=== PATIENT | male | born 1955 | race Caucasian/White ===

== ENCOUNTER 2017-07-25 16:17 | Observation (INO) | payer OTHER ==
[~2017-07-25] VITALS: Ht 185.4 cm; Wt 113.0 kg
[~2017-07-25 16:17] MED LIST: ADCIRCA20 MG PO; CALCA500CH PO; DIVA500EC PO; ENOX40I INJ; FURO80 PO; Multiple Vitam1 EAC1 PO; OPSUMIT10 MG PO; PHENY100ER PO; PRIM250 PO; TYVASO1.74 MG/2.; WARF5 PO
[2017-07-25 16:59] LABS: BASOPHILS ABSOLUTE AUTO 0.02 K/mm3 (0.00-0.23); BASOPHILS PERCENT AUTO 0 % (0-2); EOSINOPHILS ABSOLUTE AUTO 0.08 K/mm3 (0.00-0.68); EOSINOPHILS PERCENT AUTO 1 % (0-6); Hematocrit 41.7 % (37.0-53.0); IMMATURE GRAN ABSOLUTE AUTO 0.02 K/mm3 (0.00-0.10); IMMATURE GRAN PERCENT AUTO 0 % (0-1); LYMPHOCYTES ABSOLUTE AUTO 1.62 K/mm3 (0.84-5.20); LYMPHOCYTES PERCENT AUTO 29 % (21-46); MONOCYTES ABSOLUTE AUTO 0.51 K/mm3 (0.16-1.47); MONOCYTES PERCENT AUTO 9 % (4-13); Mean Corpuscular HGB 30.8 pg (26.0-34.0); Mean Corpuscular HGB Conc 33.6 g/dL (31.5-36.5); Mean Corpuscular Volume 92 fL (80-100); Mean Platelet Volume 9.9 fL (9.1-12.4); NEUTROPHILS ABSOLUTE AUTO 3.35 K/mm3 (1.96-9.15); NEUTROPHILS PERCENT AUTO 60 % (41-73); Platelet Count 228 K/mm3 (150-400); RDW Coefficient Variation 12.6 % (11.7-14.2); RDW Standard Deviation 42.7 fL (35.1-46.3); Red Blood Cell Count 4.54 M/mm3 (4.30-5.90)
[2017-07-25 17:15] LABS: Alanine Aminotransfer (ALT/SGP 37 U/L (12-78); Albumin, Blood 3.7 g/dL (3.4-5.0); Albumin/Globulin Ratio 1.1 (0.8-1.8); Alk Phos 53 U/L (50-136); Anion Gap 8 mmol/L (6-16); Aspartate Aminotrans (AST/SGOT 44 U/L (12-37); Bilirubin, Total 0.4 mg/dL (0.1-1.0); Blood Urea Nitrogen 15 mg/dL (8-24); Bun/Creatinine Ratio 18.7 (12.0-20.0); CO2, Blood 24 mmol/L (21-32); Calcium, Blood 9.1 mg/dL (8.5-10.1); Chloride, Blood 110 mmol/L (98-108); Globulin, Blood 3.4 g/dL (2.2-4.0); Glomerular Filtration Rate >60 (60-); Glucose, Blood 55 mg/dL (70-99); Sodium, Blood 142 mmol/L (136-145); Total Protein, Blood 7.1 g/dL (6.4-8.2); Troponin I <0.015 ng/mL (0.000-0.040)
[2017-07-25] MEDS ORDERED: ELIQUIS5 MG (17:43)
[2017-07-25] MEDS ORDERED: SILD25T (17:50)
[2017-07-25] MEDS ORDERED: [UNRECOGNIZED DRUG - OTHER] (17:51)
[2017-07-25 18:03] LABS: International Normalized Ratio 1.07; Prothrombin Time Results 11.2 Sec (9.7-11.5)
[2017-07-25 20:47] LABS: Creatine Kinase MB 7.4 ng/mL (0.0-3.6); Creatine Kinase MB Index 3.7 (0.0-4.0)
[2017-07-26 05:27] LABS: BASOPHILS ABSOLUTE AUTO 0.02 K/mm3 (0.00-0.23); BASOPHILS PERCENT AUTO 1 % (0-2); EOSINOPHILS ABSOLUTE AUTO 0.13 K/mm3 (0.00-0.68); EOSINOPHILS PERCENT AUTO 3 % (0-6); Hematocrit 39.9 % (37.0-53.0); Hemoglobin 13.5 g/dL (13.5-17.5); IMMATURE GRAN ABSOLUTE AUTO 0.01 K/mm3 (0.00-0.10); IMMATURE GRAN PERCENT AUTO 0 % (0-1); LYMPHOCYTES ABSOLUTE AUTO 1.93 K/mm3 (0.84-5.20); LYMPHOCYTES PERCENT AUTO 45 % (21-46); MONOCYTES ABSOLUTE AUTO 0.46 K/mm3 (0.16-1.47); MONOCYTES PERCENT AUTO 11 % (4-13); Mean Corpuscular HGB 31.2 pg (26.0-34.0); Mean Corpuscular HGB Conc 33.8 g/dL (31.5-36.5); Mean Corpuscular Volume 92 fL (80-100); Mean Platelet Volume 9.5 fL (9.1-12.4); NEUTROPHILS ABSOLUTE AUTO 1.71 K/mm3 (1.96-9.15); NEUTROPHILS PERCENT AUTO 40 % (41-73); Platelet Count 186 K/mm3 (150-400); RDW Coefficient Variation 12.6 % (11.7-14.2); Red Blood Cell Count 4.33 M/mm3 (4.30-5.90); White Blood Cell Count 4.26 K/mm3 (4.00-11.30)
[2017-07-26 05:54] LABS: Anion Gap 6 mmol/L (6-16); Blood Urea Nitrogen 12 mg/dL (8-24); CO2, Blood 26 mmol/L (21-32); Calcium, Blood 8.5 mg/dL (8.5-10.1); Chloride, Blood 109 mmol/L (98-108); Cholesterol 158 mg/dL (50-200); Creatinine, Blood 0.67 mg/dL (0.60-1.20); Glomerular Filtration Rate >60 (60-); Glucose, Blood 92 mg/dL (70-99); Sodium, Blood 141 mmol/L (136-145); Triglycerides 59 mg/dL (30-160); Very Low Density Lipoprot Chol 11 mg/dL (6-32)
[2017-07-26 06:02] LABS: CHOL/HDL RATIO 2.9; CPK Creatine Kinase 141 U/L (39-308); Creatine Kinase MB 5.6 ng/mL (0.0-3.6); HDL Cholesterol 54 mg/dL (>39); LDL/HDL RATIO 1.7; Low Density Lipoprotein Chol 92 mg/dL (0-110); Troponin I 0.017 ng/mL (0.000-0.040)
== END 2017-07-26 13:07 | disposition home or self-care (01) ==
LOC: ER 16:17 → MEDS 16:18 → ENPENDDIS 07-26 12:16 → MEDS 07-26 13:07
PROVIDERS: Family Medicine; Physician Assistant
DX: R55 Syncope and collapse (principal); R94.31 Abnormal electrocardiogram [ECG] [EKG]; G40.909 Epilepsy, unspecified, not intractable, without status epilepticus; K21.9 Gastro-esophageal reflux disease without esophagitis; G47.33 Obstructive sleep apnea (adult) (pediatric); I27.21 Secondary pulmonary arterial hypertension; E66.9 Obesity, unspecified; Z79.01 Long term (current) use of anticoagulants; Z98.890 Other specified postprocedural states; Z99.89 Dependence on other enabling machines and devices; Z79.899 Other long term (current) drug therapy; Z23 Encounter for immunization
CPT/HCPCS: 36415; 71046; 80048; 80053; 80061; 82550; 82553; 82947; 83036; 83880; 84443; 84484; 85025; 85610; 85730; 93005; 93010; 93225; 93226; 93306; 94762; 99285; G0008; G0378; Q2038

== ENCOUNTER 2021-02-14 12:36 | Day surgery (SDC) | payer OTHER ==
[~2021-02-14] VITALS: Ht 182.9 cm; Wt 106.2 kg
[~2021-02-14 12:36] MED LIST changes: +Alph-E-Mixed400 UNIT; +ELIQUIS5 MG; +LETAIRIS PO; +SILD25T; +UPTRAVI PO; +VITAMIN D325 MC3 PO; +[UNRECOGNIZED DRUG - OTHER]
--- NOTE | 2021-02-14 14:55 | NUR ---
02/14/21 1453 Nancy Puentes PT. FROM ENDO ROOM 1 TO PT. ROOM #2. PT. ON RA WITH SATS AT 84%. O2 PLACED ON PT. AT 2L/NC WITH SATS FROM 86-93%. PT. ENC. TO TAKE DEEP BREATHS. DR. BROWN WANTED PT. ON 2L/NC WHILE WAKING UP MORE. WHEN PT. ENC. TO TAKE DEEP BREATHS WITH SAT UP TO 95% ON 2L/NC. PT. DRINKING WATER.
== END 2021-02-14 16:00 | disposition home or self-care (01) ==
LOC: ORSCSDS 12:36
PROVIDERS: Internal Medicine Gastroenterology
PROC: 0DJD8ZZ Inspection of Lower Intestinal Tract, Via Natural or Artificial Opening Endoscopic (ICD-10-PCS; principal; 2021-02-14 14:00)
DX: Z12.11 Encounter for screening for malignant neoplasm of colon (principal); Z86.010 Personal history of colon polyps; K64.8 Other hemorrhoids; G47.30 Sleep apnea, unspecified; K57.30 Diverticulosis of large intestine without perforation or abscess without bleeding; I10 Essential (primary) hypertension; G47.33 Obstructive sleep apnea (adult) (pediatric); E66.9 Obesity, unspecified; Z68.31 Body mass index [BMI] 31.0-31.9, adult; Z79.01 Long term (current) use of anticoagulants; Z79.899 Other long term (current) drug therapy
CPT/HCPCS: J2250; J2704; J3010; J7120

== ENCOUNTER 2022-12-11 13:20 | Inpatient (IN) | payer MEDICARE, OTHER ==
[~2022-12-11] VITALS: Ht 185.4 cm; Wt 103.9 kg
[~2022-12-11 13:20] MED LIST changes: -Alph-E-Mixed400 UNIT; +Alph-E-Mixed400 UNIT PO; -ELIQUIS5 MG; +ELIQUIS5 MG PO; -SILD25T; +SILD25T PO
[2022-12-11 14:13] LABS: BASOPHILS ABSOLUTE AUTO 0.03 K/mm3 (0.00-0.23); BASOPHILS PERCENT AUTO 0 % (0-2); EOSINOPHILS ABSOLUTE AUTO 0.01 K/mm3 (0.00-0.68); EOSINOPHILS PERCENT AUTO 0 % (0-6); Hematocrit 49.3 % (37.0-53.0); Hemoglobin 16.7 g/dL (13.5-17.5); IMMATURE GRAN ABSOLUTE AUTO 0.04 K/mm3 (0.00-0.10); IMMATURE GRAN PERCENT AUTO 1 % (0-1); LYMPHOCYTES PERCENT AUTO 30 % (21-46); MONOCYTES ABSOLUTE AUTO 0.86 K/mm3 (0.16-1.47); MONOCYTES PERCENT AUTO 13 % (4-13); Mean Corpuscular HGB 33.3 pg (26.0-34.0); Mean Corpuscular HGB Conc 33.9 g/dL (31.5-36.5); Mean Corpuscular Volume 98 fL (80-100); Mean Platelet Volume 10.7 fL (9.1-12.4); NEUTROPHILS ABSOLUTE AUTO 3.82 K/mm3 (1.96-9.15); NEUTROPHILS PERCENT AUTO 57 % (41-73); NRBC ABSOLUTE 0.07 K/mm3 (0.00-0.02); Platelet Count 223 K/mm3 (150-400); RDW Coefficient Variation 15.8 % (11.7-14.2); RDW Standard Deviation 55.9 fL (35.1-46.3); Red Blood Cell Count 5.01 M/mm3 (4.30-5.90); White Blood Cell Count 6.76 K/mm3 (4.00-11.30)
[2022-12-11 14:19] LABS: International Normalized Ratio 1.31; Prothrombin Time Results 13.5 Sec (9.7-11.5)
[2022-12-11 14:34] LABS: Alanine Aminotransfer (ALT/SGP 22 U/L (12-78); Albumin, Blood 3.5 g/dL (3.4-5.0); Albumin/Globulin Ratio 0.9 (0.8-1.8); Alk Phos 195 U/L (50-136); Anion Gap 9 mmol/L (6-16); Aspartate Aminotrans (AST/SGOT 33 U/L (12-37); Bilirubin, Total 0.7 mg/dL (0.1-1.0); Blood Urea Nitrogen 65 mg/dL (8-24); Bun/Creatinine Ratio 29.4 (12.0-20.0); CO2, Blood 25 mmol/L (21-32); Calcium, Blood 9.2 mg/dL (8.5-10.1); Chloride, Blood 103 mmol/L (98-108); Creatinine, Blood 2.21 mg/dL (0.60-1.20); Ethanol (Alcohol), Blood, Med <3 mg/dL; Globulin, Blood 3.8 g/dL (2.2-4.0); Glomerular Filtration Rate 31 (60-); Glucose, Blood 122 mg/dL (70-99); Potassium, Blood 5.3 mmol/L (3.5-5.5); Sodium, Blood 137 mmol/L (136-145); Total Protein, Blood 7.3 g/dL (6.4-8.2)
[2022-12-11] MEDS ORDERED: POTA10T PO (18:28)
[2022-12-11 19:55] VITALS: BP 117/73
[2022-12-11] MEDS ORDERED: TADA10TA PO (20:12)
[2022-12-11 21:59] LABS: Albumin, Blood 3.2 g/dL (3.4-5.0); Anion Gap 7 mmol/L (6-16); Blood Urea Nitrogen 69 mg/dL (8-24); CO2, Blood 22 mmol/L (21-32); Calcium, Blood 9.1 mg/dL (8.5-10.1); Chloride, Blood 105 mmol/L (98-108); Creatinine, Blood 2.03 mg/dL (0.60-1.20); Glomerular Filtration Rate 35 (60-); Glucose, Blood 147 mg/dL (70-99); Phosphorus, Blood 4.6 mg/dL (2.5-4.9); Potassium, Blood 5.8 mmol/L (3.5-5.5); Sodium, Blood 134 mmol/L (136-145)
[2022-12-12 05:20] VITALS: BP 97/75
--- NOTE | 2022-12-12 05:44 | NUR ---
SUMMARY: PT ADMITTED OVERNIGHT. ON 5L VIA NC. PATIENT BASELINE IS 3L. PATIENT HAS HOME BIPAP HE WORE OVERNIGHT. PATIENT VERY UNSTEADY WHEN UP AMBULATING. NEEDS 2X ASSIST. PATIENT VERBALIZED HE HADN'T URINATED ALL DAY PRIOR TO ADMIT, BLADDER SCAN SHOWED 496ML. PATIENT WAS UNABLE TO VOID AFTER A FEW ATTEMPTS WHILE STANDING. ALMANZAR CATH ORDERS RECIEVED AND CATH PLACED. URINE VERY ANISHA IN COLOR. HOME MED REC COMPLETED WITH PATIENT . HOME MEDS BROUGHT IN WERE IN BOTTLE. WILL CALL THIS MORNING TO SEE IF THEY HAVE NON MEDS AT HOME SHE CAN BRING IN.
[2022-12-12 05:45] LABS: Hematocrit 49.1 % (37.0-53.0); Hemoglobin 16.2 g/dL (13.5-17.5); Mean Corpuscular HGB 32.7 pg (26.0-34.0); Mean Corpuscular Volume 99 fL (80-100); Mean Platelet Volume 11.1 fL (9.1-12.4); NRBC ABSOLUTE 0.08 K/mm3 (0.00-0.02); NRBC Auto 1.3 /100 WBC (0.0-0.2); Platelet Count 189 K/mm3 (150-400); RDW Coefficient Variation 15.5 % (11.7-14.2); RDW Standard Deviation 55.3 fL (35.1-46.3); Red Blood Cell Count 4.96 M/mm3 (4.30-5.90); White Blood Cell Count 5.96 K/mm3 (4.00-11.30)
[2022-12-12 06:05] LABS: Bun/Creatinine Ratio 38.7 (12.0-20.0); Calcium, Blood 8.9 mg/dL (8.5-10.1); Creatinine, Blood 1.86 mg/dL (0.60-1.20); Magnesium, Blood 2.8 mg/dL (1.6-2.4); Potassium, Blood 5.5 mmol/L (3.5-5.5)
[2022-12-12 07:24] VITALS: BP 103/84
[2022-12-12 12:40] LABS: Source, Urine Foley catheter
[2022-12-12 13:09] LABS: Appearance, Urine Cloudy (Clear); Bilirubin, Urine Neg (Neg); Blood, Urine 5+ (Neg); Color, Urine Amber (P-Yellow); Glucose Qualitative, Urine Neg (Neg); Ketones, Urine Neg (Neg); Leukocyte Esterase, Urine 3+ (Neg); Nitrite, Urine Neg (Neg); Protein, Urine 3+ (Neg); Urobilinogen, Urine NORM (Normal)
[2022-12-12 13:36] LABS: Amorphous Light (0-Heavy); Bacteria Rare /hpf; Mucus Light (0-Heavy); Red Blood Cells, Urine TNTC /hpf (0-2); Squamous Epithelial Cells Not Seen /hpf (Few)
[2022-12-12 15:52] VITALS: BP 101/80
--- NOTE | 2022-12-12 17:41 | NUR ---
SHIFT SUMMARY: NO ACUTE EVENTS. C/O BACK PAIN FROM BEING IN BED, BUT DECLINED OFFERED TYLENOL. NO EVENTS ON TELEMETRY, SR 70'S WITH BBB. ON O2 @ 5 L/MIN HF NC CONTINUOUS WITH O2 SATS 85-95% DEPENDING ON ACTIVITY. HAS OWN BIPAP AT BEDSIDE. ALMANZAR IN PLACE; URINE THIS MORNING WAS DARK ANISHA, BECAME MORE CLEAR AND YELLOW THIS AFTERNOON. TOLERATING REGULAR DIET. WORKED WITH PT/OT TODAY, WAS ABLE TO TRANSFER FROM BED TO [facility] FOR MRI WITH JUST SBA, BALANCE SLIGHTLY IMPAIRED. AT BEDSIDE MOST OF THE DAY.
[2022-12-12 19:15] VITALS: BP 105/72
[2022-12-13 04:52] VITALS: BP 116/83
--- NOTE | 2022-12-13 05:11 | NUR ---
SUMMARY: NO ACUTE EVENTS OVERNIGHT. PATIENT AOX4. VERY UNSTEADY ON HIS FEET. AMBULATED TO RESTROOM WITH STAFF 1X ASSIST GB AND WALKER. IF STAFF WAS NOT IN RESTROOM WITH HIM WHILE AMBULATING HE PROBABLY WOULD HAVE HAD A FALL LAST NIGHT DUE TO HIS BALANCE PROBLEMS. WORE HIS BIPAP THROUGHOUT THE NIGHT. CALLS APPROPRIATELY. BED ALARM ON FOR SAFETY.
[2022-12-13 05:37] LABS: Anion Gap 6 mmol/L (6-16); Blood Urea Nitrogen 60 mg/dL (8-24); Bun/Creatinine Ratio 48.8 (12.0-20.0); CO2, Blood 22 mmol/L (21-32); Calcium, Blood 8.6 mg/dL (8.5-10.1); Chloride, Blood 107 mmol/L (98-108); Creatinine, Blood 1.23 mg/dL (0.60-1.20); Dilantin (Phenytoin), Total 10.6 ug/mL (10.0-20.0); Glomerular Filtration Rate 64 (60-); Glucose, Blood 93 mg/dL (70-99); Potassium, Blood 5.1 mmol/L (3.5-5.5); Sodium, Blood 135 mmol/L (136-145); Valproic Acid 52.1 ug/mL (50.0-100.0)
[2022-12-13 07:27] VITALS: BP 107/77
[2022-12-13] MEDS ORDERED: TAMS.4ER PO (12:41)
[2022-12-13 16:20] VITALS: BP 105/79
--- NOTE | 2022-12-13 17:43 | NUR ---
Patient worked with therapy, weakness, unsteady gait. PT recommends SBAx1 with FWW & GB. Removed gil this am, patient had little UO today, retaining 440mL. This evening patient voided 250mL but still retaining 167mL. Will continue bladder training over night. Plan to DC home tomorrow.
--- NOTE | 2022-12-13 17:53 | NUR ---
ASSUMED CARE OF PT. REPORT RECIEVED FROM DYLON COOPER
[2022-12-13 19:53] VITALS: BP 107/79
[2022-12-14 02:45] VITALS: BP 106/81
--- NOTE | 2022-12-14 05:21 | NUR ---
SUMMARY: NO ACUTE EVENTS OVERNIGHT. PATIENT HAD A FEW VOIDS OVERNIGHT. BLADDER SCANNED POST VOID THIS MORNING AND PATIENT STILL HAD 206ML RESIDUAL. PATIENT AMBULATED WITH WALKER TO RESTROOM THROUGHOUT NIGHT. AOX4. ON 4L NC NOW.
[2022-12-14 07:20] VITALS: BP 116/92
--- NOTE | 2022-12-14 09:47 | NUR ---
Patient doing well over night, good urine output. MD at bedside, pt ready for discharge. Instructions to f/u with urologist. Removed IV, reviewed discharge education. Pt verbalzied understanding. Left medical floor at 0900.
== END 2022-12-14 09:13 | disposition home health service (06) | DRG 683 ==
LOC: ER 13:20 → MEDS 13:21 → ENPENDDIS 12-13 11:35 → MEDS 12-14 09:13
PROVIDERS: Emergency Medicine; Internal Medicine; Nurse Practitioner Acute Care; ADMIT Hospitalist
PROC: 5A09357 Assistance with Respiratory Ventilation, Less than 24 Consecutive Hours, Continuous Positive Airway Pressure (ICD-10-PCS; principal; 2022-12-12)
DX: N17.9 Acute kidney failure, unspecified (principal); J96.11 Chronic respiratory failure with hypoxia; Z66 Do not resuscitate; G40.909 Epilepsy, unspecified, not intractable, without status epilepticus; R27.0 Ataxia, unspecified; G47.33 Obstructive sleep apnea (adult) (pediatric); R33.9 Retention of urine, unspecified; M54.9 Dorsalgia, unspecified; I27.21 Secondary pulmonary arterial hypertension; E86.9 Volume depletion, unspecified; W19.XXXA Unspecified fall, initial encounter; Z86.711 Personal history of pulmonary embolism; Z86.718 Personal history of other venous thrombosis and embolism; Z79.899 Other long term (current) drug therapy; Z99.89 Dependence on other enabling machines and devices; Z79.01 Long term (current) use of anticoagulants
CPT/HCPCS: 36415; 51702; 70553; 71046; 76770; 80048; 80053; 80069; 80164; 80185; 81001; 82550; 82947; 83735; 83880; 84484; 85025; 85027; 85379; 85610; 93005; 93010; 94660; 94761; 94762; 97110; 97116; 97162; 97166; 97530; 97535; 99285-25; A9270; A9579; G0378; G0480; J7030; J7050

== ENCOUNTER 2023-01-31 10:56 | Inpatient (IN) | payer OTHER, MEDICARE ==
[~2023-01-31] VITALS: Ht 182.9 cm; Wt 101.5 kg
[~2023-01-31 10:56] MED LIST changes: +POTA10T PO; +TADA10TA PO; +TAMS.4ER PO
[2023-01-31 11:45] LABS: PCO2 Arterial 38.7 mmHg (35-45); PO2 Arterial 44.3 mmHg (80-100); pH Blood Arterial 7.47 (7.35-7.45)
[2023-01-31 12:10] LABS: BASOPHILS ABSOLUTE AUTO 0.02 K/mm3 (0.00-0.23); BASOPHILS PERCENT AUTO 0 % (0-2); EOSINOPHILS ABSOLUTE AUTO 0.03 K/mm3 (0.00-0.68); EOSINOPHILS PERCENT AUTO 1 % (0-6); Hematocrit 43.1 % (37.0-53.0); Hemoglobin 14.8 g/dL (13.5-17.5); IMMATURE GRAN ABSOLUTE AUTO 0.04 K/mm3 (0.00-0.10); IMMATURE GRAN PERCENT AUTO 1 % (0-1); LYMPHOCYTES ABSOLUTE AUTO 0.96 K/mm3 (0.84-5.20); LYMPHOCYTES PERCENT AUTO 18 % (21-46); MONOCYTES ABSOLUTE AUTO 0.84 K/mm3 (0.16-1.47); MONOCYTES PERCENT AUTO 16 % (4-13); Mean Corpuscular HGB 33.8 pg (26.0-34.0); Mean Corpuscular HGB Conc 34.3 g/dL (31.5-36.5); Mean Corpuscular Volume 98 fL (80-100); Mean Platelet Volume 10.3 fL (9.1-12.4); NEUTROPHILS ABSOLUTE AUTO 3.41 K/mm3 (1.96-9.15); NEUTROPHILS PERCENT AUTO 64 % (41-73); Platelet Count 216 K/mm3 (150-400); RDW Coefficient Variation 15.6 % (11.7-14.2); RDW Standard Deviation 55.1 fL (35.1-46.3); Red Blood Cell Count 4.38 M/mm3 (4.30-5.90)
[2023-01-31 12:22] LABS: Albumin, Blood 3.2 g/dL (3.4-5.0); Albumin/Globulin Ratio 0.9 (0.8-1.8); Bilirubin, Total 0.7 mg/dL (0.1-1.0); Bun/Creatinine Ratio 41.3 (12.0-20.0); Calcium, Blood 8.8 mg/dL (8.5-10.1); Creatinine, Blood 1.09 mg/dL (0.60-1.20); Globulin, Blood 3.7 g/dL (2.2-4.0); Potassium, Blood 3.6 mmol/L (3.5-5.5); Total Protein, Blood 6.9 g/dL (6.4-8.2)
[2023-01-31 12:26] LABS: Dilantin (Phenytoin), Total 12.1 ug/mL (10.0-20.0); Valproic Acid 59.3 ug/mL (50.0-100.0)
[2023-01-31 16:09] VITALS: BP 101/76
[2023-01-31] MEDS ORDERED: TORSE20 PO (16:28)
[2023-01-31] MEDS ORDERED: POTA10T PO (16:28)
[2023-01-31] MEDS ORDERED: OMEP20ER PO (16:30)
--- NOTE | 2023-01-31 16:40 | NUR ---
pt short of breath and fatigued. History of recent falls. states harder to get him in and out of their trailer. They are needing to go to [place]. Gave her information on resources. pt kps score is 50% may need hospice care soon.
--- NOTE | 2023-01-31 16:43 | NUR ---
Pt arrived to 342 via gurney from ED, in attendence, a/ox4, havasupai, pleasant and coopertive with care, follows commands well, denies pain, lungs are clear in upper villalobos, a bit dim in bases, resp even and mild laboring, currently on 10 liters 02 via n/c, no cough noted, hrr, 3-4+ edema noted to b/l le, cap refill <3 sec, vs stable, afebrile, piv site is clear and patent, btx4, abd flat soft nontender, voids without diff, currently has a condom cath in place, draining clear yellow urine, skin has ecchymotic areas from multiple falls at home, no open areas, tone, miguel, nancy, call light in reach, oriented to room layout and call system, call light in reach.
--- NOTE | 2023-01-31 18:26 | NUR ---
pt doing ok on 10 liters, in good humor, left for the night, no further changes this shift, call light in reach.
[2023-01-31 20:18] VITALS: BP 128/84
[2023-02-01 05:00] LABS: Base Excess Venous 6.2 mmol/L; Bicarbonate Venous 29.4 mmol/L (24.0-30.0); PCO2 Venous 42.3 mmHg (38-42); pH Blood Venous 7.46 (7.34-7.37)
[2023-02-01 05:18] VITALS: BP 104/68
[2023-02-01 05:32] LABS: BASOPHILS ABSOLUTE AUTO 0.03 K/mm3 (0.00-0.23); BASOPHILS PERCENT AUTO 1 % (0-2); EOSINOPHILS ABSOLUTE AUTO 0.05 K/mm3 (0.00-0.68); EOSINOPHILS PERCENT AUTO 1 % (0-6); Hematocrit 41.2 % (37.0-53.0); Hemoglobin 14.1 g/dL (13.5-17.5); IMMATURE GRAN ABSOLUTE AUTO 0.01 K/mm3 (0.00-0.10); IMMATURE GRAN PERCENT AUTO 0 % (0-1); LYMPHOCYTES ABSOLUTE AUTO 1.38 K/mm3 (0.84-5.20); LYMPHOCYTES PERCENT AUTO 33 % (21-46); MONOCYTES ABSOLUTE AUTO 0.63 K/mm3 (0.16-1.47); MONOCYTES PERCENT AUTO 15 % (4-13); Mean Corpuscular HGB 33.7 pg (26.0-34.0); Mean Corpuscular HGB Conc 34.2 g/dL (31.5-36.5); Mean Corpuscular Volume 98 fL (80-100); Mean Platelet Volume 10.5 fL (9.1-12.4); NEUTROPHILS ABSOLUTE AUTO 2.08 K/mm3 (1.96-9.15); NEUTROPHILS PERCENT AUTO 50 % (41-73); Platelet Count 205 K/mm3 (150-400); RDW Coefficient Variation 15.4 % (11.7-14.2); RDW Standard Deviation 55.2 fL (35.1-46.3); Red Blood Cell Count 4.19 M/mm3 (4.30-5.90); White Blood Cell Count 4.18 K/mm3 (4.00-11.30)
[2023-02-01 06:04] LABS: Albumin/Globulin Ratio 0.9 (0.8-1.8); Bilirubin, Total 0.6 mg/dL (0.1-1.0); Bun/Creatinine Ratio 40.2 (12.0-20.0); Calcium, Blood 8.5 mg/dL (8.5-10.1); Globulin, Blood 3.3 g/dL (2.2-4.0); Magnesium, Blood 2.2 mg/dL (1.6-2.4); Potassium, Blood 3.7 mmol/L (3.5-5.5); Total Protein, Blood 6.3 g/dL (6.4-8.2)
[2023-02-01 06:22] VITALS: BP 120/70
--- NOTE | 2023-02-01 06:40 | NUR ---
SHIFT SUMMARY PT STARTED SHIFT ON 7L, INCREASED BACK TO 10L NC DUE TO O2 SAT BELOW 87% PT PLACED ON BIPAP REMAINDER OF THE NIGHT. Q1H FIRE SAFETY CHECKS COMPLETED
[2023-02-01 08:14] VITALS: BP 115/83
[2023-02-01 16:14] VITALS: BP 106/77
--- NOTE | 2023-02-01 17:37 | NUR ---
pt visiting with some aggitation. he is speaking more clearly but slightly more ashen. Review with nursing, if he keeps going up on oxygen and sats keep dropping suggest he be placed on telemetry. Will continue to monitor. Friday will see what his if pulmonolgy will be contacted to assist with prognosis. kps score is 50%
--- NOTE | 2023-02-01 18:21 | NUR ---
SHIFT SUMMARY: PT A&O X4. PT PLEASANT AND COOPERATIVE WITH CARE. AT BEDSIDE THROUGHOUT SHIFT TO ASSIST WITH NEEDS. PT WALKED TO RESTROOM WITH ONE PERSON ASSIST TWICE THIS SHIFT. PT UNSTEADY ON FEET EVEN WITH WALKER. PT RECEIVING IV LASIX BID TOLERATING WELL. EMPTIED CONDOM CATH AT 1800 EMPTYING 1500ML OUT. PT INCREASED TO 12L DUE TO 02 LOW TO MID 80'S. PT SLEEPS WITH BIPAP. PT STATES TREMORS ARE BETTER THIS SHIFT. TELE IN PLACE. CALL LIGHT IN REACH. BED IN LOWEST POSITION. AT BEDSIDE. WILL CONTINUE TO MONITOR.
[2023-02-02 04:37] VITALS: BP 103/73
[2023-02-02 05:11] LABS: BASOPHILS ABSOLUTE AUTO 0.02 K/mm3 (0.00-0.23); BASOPHILS PERCENT AUTO 0 % (0-2); EOSINOPHILS ABSOLUTE AUTO 0.05 K/mm3 (0.00-0.68); EOSINOPHILS PERCENT AUTO 1 % (0-6); Hematocrit 45.4 % (37.0-53.0); Hemoglobin 15.3 g/dL (13.5-17.5); IMMATURE GRAN ABSOLUTE AUTO 0.02 K/mm3 (0.00-0.10); IMMATURE GRAN PERCENT AUTO 0 % (0-1); LYMPHOCYTES ABSOLUTE AUTO 1.54 K/mm3 (0.84-5.20); LYMPHOCYTES PERCENT AUTO 33 % (21-46); MONOCYTES ABSOLUTE AUTO 0.72 K/mm3 (0.16-1.47); MONOCYTES PERCENT AUTO 15 % (4-13); Mean Corpuscular HGB 33.5 pg (26.0-34.0); Mean Corpuscular HGB Conc 33.7 g/dL (31.5-36.5); Mean Corpuscular Volume 99 fL (80-100); Mean Platelet Volume 10.2 fL (9.1-12.4); NEUTROPHILS ABSOLUTE AUTO 2.37 K/mm3 (1.96-9.15); NEUTROPHILS PERCENT AUTO 50 % (41-73); Platelet Count 228 K/mm3 (150-400); RDW Coefficient Variation 15.1 % (11.7-14.2); RDW Standard Deviation 55.2 fL (35.1-46.3); Red Blood Cell Count 4.57 M/mm3 (4.30-5.90); White Blood Cell Count 4.72 K/mm3 (4.00-11.30)
[2023-02-02 05:35] LABS: Bun/Creatinine Ratio 30.2 (12.0-20.0); Calcium, Blood 8.7 mg/dL (8.5-10.1); Creatinine, Blood 1.06 mg/dL (0.60-1.20); Potassium, Blood 3.9 mmol/L (3.5-5.5)
--- NOTE | 2023-02-02 05:36 | NUR ---
ASSUMED CARE A/O X3 CHILKAT NO C/O PAIN NO DISTRESS, PT HAS BRUISING ON FACE FROM FALLS SO I HAVE BEEN VERY CLOSE STANDBY ASSIST. PT DIURESING WELL HAS CONDOM CATH ON [facility] WAS REPLACED MID SHIFT. HEARING AID PLACED IN BEDSIDE TABLE, CPAP ON PT. UNEVENTFUL NIGHT.
[2023-02-02 07:31] VITALS: BP 101/69
[2023-02-02 15:46] VITALS: BP 94/70
--- NOTE | 2023-02-02 17:48 | NUR ---
PT COMPUTER DOES NOT SCAN. ENTERING MEDICATIONS IN MAUALLY.
--- NOTE | 2023-02-02 18:39 | NUR ---
SHIFT SUMMARY: PT A&O X4. PT PLEASANT AND COOPERATIVE WITH ALL CARE. CONTINUING TO DIURESE PT. PT HAS LOST SEVERAL POUNDS SINCE ADMISSION. EMPTIED 850 FROM CONDOM CATH FOR DAY SHIFT. EDEMA LOOKING MUCH BETTER. PT ON 10L O2 NC AND BIPAP WITH NAPS/SLEEP. PT RANGING FROM MID 80'S TO LOW 90'S. CONDOM CATH IN PLACE. AT BEDSIDE ASSISTING PT WITH CARE NEEDS. FIRE IGNITION SOURCES DISCUSSED WITH PT AND BY THIS RN AND SHERIFFS OFFICER IN MORNING ROUNDS. PT VERBALIZED UNDERSTANDING. CALL LIGHT IN REACH. BED IN LOWEST POSITION. WILL CONTINUE TO MONITOR.
[2023-02-02 19:52] VITALS: BP 96/64
[2023-02-03] VITALS (7 sets, daily range): BP systolic 104–123; BP diastolic 73–85
[2023-02-03 05:59] LABS: Bun/Creatinine Ratio 28.6 (12.0-20.0); Calcium, Blood 8.7 mg/dL (8.5-10.1); Creatinine, Blood 0.91 mg/dL (0.60-1.20); Potassium, Blood 4.1 mmol/L (3.5-5.5)
--- NOTE | 2023-02-03 17:25 | NUR ---
PATIENT IS ALERT AND ORIENTED AND COOPERATIVE WITH CARE. ON 10L O2 BLEED IN THROUGH HIS BIPAP AT THIS TIME WITH OXYYGEN SATURATION OF 94%. PATIENT DOES DESATURATE AT TIMES, EVEN AT REST. HE STARTED THE SHIFT OF 8L O2 VIA NC AND NEEDED TO BE INCREASED TO 13L TO KEEP O2 SATS ABOVE 90%. THE PATIENT'S AND SISTER HAVE BEEN AT THE BEDSIDE MOST OF THE SHIFT. HE HAS BILATERAL LOWER EXTREMITY EDEMA, SWAPNIL HOSE WERE PLACED ON THE PT TODAY. PATIENT WORKED WITH PT. HE SAT UP IN THE CHAIR AND THEN RECLINER FOR A FEW HOURS TODAY. PLAN IS TO TITRATE O2 TO HIS BASELINE AMOUNT BEFORE DISCHARGE HOME WITH .
[2023-02-04 04:13] VITALS: BP 118/81
--- NOTE | 2023-02-04 06:14 | NUR ---
SHIFT SUMMERY PT RESTING IN BED, PT ON BIPAP WITH 8L BLED IN. PT SEEMED TO REST WELL. EARLYER PTS FAMILY HERE PT WANTING TO GET UP TO BR TO HAVE BM. PT NOT WANTING TO USE BSC. PT UP TO BR WITH 2 ASSIST WALKER AND GATE BELT. PT HAD LIQ BM FROM BED TO BR PT FINISED BM WAS CLEANED AND HELPED BACK TO BED. PT SEEMS TO HAVE SLEPT THIS NIGHT. CALL LIGHT IN REACH BED ALARM ON. FIRE TEACHING REVIEWED. PT ALERT AND ORIENTED BUT FORGETFULL AT TIMES.
[2023-02-04 06:23] LABS: Bun/Creatinine Ratio 31.6 (12.0-20.0); Calcium, Blood 8.7 mg/dL (8.5-10.1); Creatinine, Blood 0.89 mg/dL (0.60-1.20)
[2023-02-04 08:01] VITALS: BP 121/79
--- NOTE | 2023-02-04 10:20 | NUR ---
ASSUMED CARE AND COMFORT OF THIS PATIENT FROM KEYLA OSBORNE NOC SHIFT. PATIENT RESTING COMFORTABLY EYES CLOSED REMAINS ON CPAP. ABLE TO VERBALIZE ANSWERS TO FIRE SAFETY QUESTION. NO CONCERNS NOTED. EDUCATION PROVIDED.
[2023-02-04 15:20] VITALS: BP 107/73
--- NOTE | 2023-02-04 18:42 | NUR ---
ASSUMED CARE OF PT A/O, NO C/O PAIN, O2 WAS 88 ON 10L SO I SWITCHED PROB TO EAR AND IS NOW AT 93. STATED THEY PLACE IT ON HIS FOREHEAD AT MD OFFICE WITH MAINTAINS IT IN THE 90S. CONDOM CATH ALSO WAS REPLACED AND LEG STRAP APPLIED TO SECURE TUBING. REPORT TO BE GIVEN
[2023-02-04 20:23] VITALS: BP 119/79
[2023-02-05 04:57] VITALS: BP 115/78
--- NOTE | 2023-02-05 05:51 | NUR ---
WIND FARM ENGINEER SUMMARY NO ACUTE EVENTS OVERNIGHT. A&OX4. PATIENT EFFECTIVELY COMMUNICATES NEEDS. RR EVEN AND UNLABORED AT REST ON 10L/MIN 02. PATIENT IS ON CONTINUOUS BIOX AND IS NOTED TO DESATURATED QUICKLY WITH SUPPLEMENTAL O2 IS REMOVED. TELE REVEALS SINUS RHYTHM, HR 80'S. CONDOM CATHETER SECURED AND DRAINING TO GRAVITY. BED LOW AND LOCKED. CALL LIGHT WITHIN REACH. THIS RN WILL CONTINUE TO MONITOR.
[2023-02-05 07:56] VITALS: BP 121/82
[2023-02-05 15:20] VITALS: BP 121/76
--- NOTE | 2023-02-05 18:41 | NUR ---
SHIFT SUMMARY PATIENT UP TO CHAIR WITH THERAPY. PATIENT NEEDING 2 PERSON ASSIST WITH AMBULATION AND REPEATED QUEING. PATIENT CONFUSED AT TIMES BUT EASILY REORIENTED. PATIENT PULLING AT EAR BIOX AND MISPLACED HEARING AID. HEARING AD FOUND WHILE PRESENT IN THE ROOM. PATIENT CONTINUES ON HIGH FLOW O2. CONCERNED RELATED TO DISCHARGE PLAN. CASE MANAGEMENT SPOKE WITH RELATED TO PLAN FOR SNF/REHAB.
[2023-02-05 19:17] VITALS: BP 96/67
--- NOTE | 2023-02-06 02:34 | NUR ---
PT EDUCATED ON [facility] FIRE SAFETY IGNITION/EXPLOSIVE SOURCES NON SMOKING POLICY AND VERBALIZED UNDERSTANDING.
--- NOTE | 2023-02-06 03:38 | NUR ---
SHIFT SUMMARY NOC PT A/O X 4. PLEASANT AND COOPERATIVE WITH CARE. PT ON O2 10L/NC SPO2 >92%. PT ON TELE RUNNING SINUS RHYTHM @ 83 BPM. PT HAS 2+ EDEMA BLE AND IS BEING DIURESED BID WITH LASIX FOR FLUID OVERLOAD. PT ON BIPAP FOR SLEEPING. PT IS AWAITING SNF TRANSFER ONCE OXYGEN DEMAND DROPS TO 7-8L. PT HAS CONDOM CATH IN PLACE.PT IS CURRENTLY RESTING WITH BED IN LOWEST POSITION, AND CALL LIGHT WITHIN REACH.
[2023-02-06 03:58] VITALS: BP 106/74
[2023-02-06 04:51] LABS: Bun/Creatinine Ratio 30.8 (12.0-20.0); Creatinine, Blood 1.04 mg/dL (0.60-1.20); Potassium, Blood 4.2 mmol/L (3.5-5.5)
[2023-02-06 07:29] VITALS: BP 116/81
[2023-02-06 15:25] VITALS: BP 107/64
--- NOTE | 2023-02-06 17:34 | NUR ---
SHIFT SUMMARY PT UP IN CHAIR FOR LUNCH AND SUPPER. 1-2 PERSON ASSIST WITH FWW AND GAIT BELT TO STAND AND TRANSFER. DENIES SOB OR RESP DISTRESS BUT O2 AT 11L/M BY HIGH FLOW. SATS IN MID TO HIGH 90'S WHEN SITTING IN CHAIR BUT 90-93% WHILE LAYING DOWN IN BED. AWAKE MOST OF THE DAY WITH FAMILY VISITING ON AND OFF.
[2023-02-06 20:18] VITALS: BP 100/69
[2023-02-07 03:02] VITALS: BP 119/88
--- NOTE | 2023-02-07 04:51 | NUR ---
SHIFT SUMMARY PATIENT ALERT AND ORIENTED AT BEGINING OF SHIFT. INTERMITTANT CONFUSION AT NIGHT, TAKING OFF BiPAP AT TIMES, ATTEMPTING TO GET UP OUT OF BED WITHOUT STAFF ASSIST. ON BiPAP WITH SUPLIMENTAL O2 FOR MOST OF SHIFT. ON CONTINUOUS PULSE OX MONITORING, LOW TO MID 90s. QUICKLY DESATURATES TO MID 80s WHENEVER TAKING OFF BiPAP OR NC, QUICK RETURN TO BASELINE WITH ENCOURAGEMENT TO KEEP BiPAP AND OR NC ON. REQUIRES 1 TO 2 ASSIST FOR TRANSFERS. BED LOW, CALL LIGHT WITHIN REACH.
[2023-02-07 07:49] VITALS: BP 111/79
[2023-02-07 16:51] VITALS: BP 107/71
--- NOTE | 2023-02-07 18:05 | NUR ---
SHIFT SUMMARY- PT ALERT AND ORIENTED TO SELF, NOORVIK SPEECH A LITTLE GARBLED, HE HAS BEEN SLEEPY ALL DAY. AT THE START OF THE SHIFT THE PT WAS ON 11L VIA HIGH FLOW NC. WHILE SLEEPING EARLIER IN THE SHIFT THE BLEED IN ON THE BIPAP HAD TO BE INCREASED TO 15L BLEED IN FOR SATS TO MAINTAIN 88-92%. PT WAS ASSISTED UP INTO THE CHAIR FOR LUNCH AND PLACED BACK ON HIGH FLOW O2 AT 11L. PT WAS NOTED TO BE SATTING 99% ON 11L AT AROUND 1500 BEGAN TO TITRATE DOWN THE O2. SPOKE TO RT THEY ARE AWARE, THE PT IS CURRENTLY SITTING IN THE CHAIR, CALL LIGHT IN REACH, TELE IN PLACE ON 4L O2 VIA HIGH FLOW NC. NO CURRENT S&S OF DISTRESS NOTED SATS 92-96% AT REST IN THE CHAIR.
[2023-02-07 19:29] VITALS: BP 108/82
--- NOTE | 2023-02-07 23:17 | NUR ---
ENTERED PATIENTS ROOM TO CHECK CONTINUOUS PULSE OX. PATIENT SATS WERE READING 80 WITH CPAP ON. IMMEDIATELY RAISED HOB AND NOTIFIED RN. INCREASED O2 TO 10L PER RN REQUEST. SATS RETURNED TO 90.
[2023-02-08 04:37] VITALS: BP 101/71
[2023-02-08 06:42] LABS: Bun/Creatinine Ratio 50.8 (12.0-20.0); Calcium, Blood 8.7 mg/dL (8.5-10.1); Creatinine, Blood 0.77 mg/dL (0.60-1.20); Potassium, Blood 3.8 mmol/L (3.5-5.5)
--- NOTE | 2023-02-08 06:55 | NUR ---
SHIFT SUMMARY PATIENT MORE ALERT AND INTERACTIVE THIS SHIFT. KEPT BiPAP ON THROUGHOUT NIGHT WHILE ASLEEP. HAD 1 BRIEF EPISODE OF DESATURATION TO LOW 80s. TURNED O2 UP TO 10L FOR ABOUT A MINUTE WHILE ADJUSTING MASK. TURNED BACK DOWN TO 4L, MAINTAINING SPO2 THROUGHOUT REMAINDER OF SHIFT 90-95%. WITH MASK PROPERLY IN PLACE, PATIENT ABLE TO MAINTAIN O2 SATS WELL ON 4L. PATIENT'S SISTER AWARE, STATES HAS USED CHIN STRAP IN THE PAST AND DOES NOT WORK. PATIENT AND FAMILY REMINDED OF FIRE SAFETY AND RISK OF INJURY R/T OXYGEN USE, VERBALIZED UNDERSTANDING, DENIES HAVING ANY SOURCE OF IGNITION. NO ACUTE CHANGES NOTED OVERNIGHT. BED IN LOW POSITON, CALL LIGHT WITHIN REACH.
[2023-02-08 07:27] VITALS: BP 117/68
--- NOTE | 2023-02-08 17:04 | NUR ---
SHIFT SUMMARY PATIENT IS ALERT AND ORIENTED X3. PATIENT HAS HAD NO ACUTE EVENTS THIS SHIFT. VITAL SIGNS REVIEWED. PATIENT HAS HAD NO COMPLAINTS OF PAIN, NAUSEA, SOB OR VOMITTING THIS SHIFT. PATIENT HAS MAINTAINED O2 SATS ABOVE 94 ALL SHIFT. PATIENTS HAS ASSISTED WITH CARE. PATIENT HAS WORKED WELL WITH PHYSICAL THERAPY WITH NO DESATTING. BED IN LOCKED AND LOWEST POSITION. CALL LIGHT IN PLACE. WILL MONITOR UNTIL SHIFT CHANGE.
[2023-02-08 20:09] VITALS: BP 105/75
[2023-02-09 02:26] VITALS: BP 110/76
--- NOTE | 2023-02-09 04:03 | NUR ---
SHIFT SUMMARY PATIENT HAD NO ACUTE CHANGES. AXOX 3-4 AND ONE ASSIST TO BSC. USES URINAL AT BEDSIDE. PIV REMAINS INTACT. TELE MONITOR NSR @ 80. ON 4L O2 NC AND USES BIPAP WITH 6L O2 BLEED IN. DENIES CHEST PAIN, SOB, AND N/V. VSS/AFEBRILE. COOPERATIVE WITH CARE. CALL LIGHT IN REACH. BED IN LOWEST POSITION. WILL CONTINUE TO MONITOR UNTIL DAY SHIFT NURSE ASSUMES CARE.
[2023-02-09 05:26] LABS: Bun/Creatinine Ratio 41.6 (12.0-20.0); Creatinine, Blood 0.89 mg/dL (0.60-1.20); Potassium, Blood 3.5 mmol/L (3.5-5.5)
[2023-02-09 08:31] VITALS: BP 114/78
--- NOTE | 2023-02-09 17:02 | NUR ---
SHIFT SUMMARY PATIENT IS ALERT AND ORIENTED. PATIENT HAS HAD NO ACUTE EVENTS THIS SHIFT. VITAL SIGNS REVIEWED. PATIENT HAS HAD NO COMPLAINTS OF PAIN, NAUSEA, SOB OR VOMITTING THIS SHIFT. PATIENT REMAINS ON 4L NC. PATIENT IS PLANNING ON DISCHARGING TO SNF TOMORROW DEPENDING ON AVAILABILITY OF BED. PATIENTS HAS BEEN WITH PATIENT MOST OF SHIFT ASSISTING WITH CARE. BED IS LOCKED AND LOWEST POSITION. CALL LIGHT IN PLACE. WILL MONITOR UNTIL SHIFT CHANGE.
[2023-02-09 17:10] VITALS: BP 113/78
[2023-02-09 19:52] VITALS: BP 116/77
[2023-02-10 02:42] VITALS: BP 106/76
--- NOTE | 2023-02-10 04:20 | NUR ---
SHIFT SUMMARY PATIENT HAD NO ACUTE CHANGES. AXO X4 AND ONE ASSIST TO BSC. USES URINAL AT BEDSIDE. PIV REMAINS INTACT. ON 8L O2 NC AND USES BIPAP WITH 6L O2 BLEED IN. ON CONTINUOUS PULSE OXIMETRY STATING >92%. VSS/AFEBRILE. DENIES CHEST PAIN, SOB, AND N/V. CALL LIGHT IN REACH. BED IN LOWEST POSITION. WILL CONTINUE TO MONITOR UNTIL DAY SHIFT NURSE ASSUMES CARE.
[2023-02-10 07:30] VITALS: BP 123/79
[2023-02-10 16:47] VITALS: BP 108/78
--- NOTE | 2023-02-10 18:04 | NUR ---
NO NEW CONCERNS THIS SHIFT. PATIENT ON 6-7L O2 VIA NC WITH BIPAP AT NOC. 2+ EDEMA TO BLE. PATIENT WORKED WITH PT/OT TODAY AND WAS UP IN CHAIR FOR SEVERAL HOURS. DENIES ANY PAIN OR DISCOMFORT. A/OX4, PLEASANT AND COOPERATIVE WITH CARE. GOOD URINE OUTPUT TODAY, USING URINAL TO VOID. PATIENT CALLS APPROPRIATELY FOR ASSISTANCE. POSSIBLE SNF DISCHARGE WHEN STABLE.
[2023-02-10 19:58] VITALS: BP 94/69
[2023-02-11 02:27] VITALS: BP 128/87
--- NOTE | 2023-02-11 05:46 | NUR ---
SUMMARY: PT A/OX4 AND IS SAMISH BUT CALLS APPROPRIATELY TO SPECIFY NEEDS. HE'S PLEASANT AND COOPERATIVE W/CARE AND DENIED COMPLAINTS T/O NOCTE. HE USES URINAL AD KHOA IN BED AND IS 1PA W/FWW OOB. HE HAD PARTIAL BEDBATH TONIGHT D/T ACCIDENTALLY SPILLING URINE. HE CONT'S TO BECOME SOB W/EXERTION AND REMAINS ON 6-8L O2 VIA NC/CPAP BLEED IN TO MAINTAIN SPO2>88%, 4L O2 IS BASELINE. 2+ EDEMA OBSERVED TO BLE'S BUT PT IS DIURESING WELL W/FREQ UO. NO ACUTE CHANGES, VSS/ AFEBRILE. SNF PLACEMENT PENDING. FIRE SAFETY ASSESSMENT AND EDUCATION PROVIDED. WCTM AND REPORT TO DAY RN.
[2023-02-11 07:29] VITALS: BP 97/64
[2023-02-11 17:25] VITALS: BP 99/76
--- NOTE | 2023-02-11 18:17 | NUR ---
NO NEW CHANGES THIS SHIFT. PATIENT REMAINS ON 6-7L O2, UNABLE TO WEAN TODAY. LARGE AMOUNT OF U/O THIS SHIFT. 2+ EDEMA TO BLE. LUNGS CLEAR/DIM THROUGHOUT. VSS. PATIENT DENIES ANY PAIN. UP IN CHAIR FOR MEALS. TOLERATING LOW NA+ DIET. A/OX4, CALM AND COOPERATIVE WITH CARE, ABLE TO MAKE NEEDS KNOWN.
[2023-02-11 20:20] VITALS: BP 123/85
[2023-02-11 21:04] VITALS: BP 89/67
[2023-02-11 22:09] VITALS: BP 123/85
--- NOTE | 2023-02-11 22:10 | NUR ---
URINE OBSERVED TO BE CLOUDY AND HAZY W/SEDIMENT. TASHA NOTIFIED AND UA W/CULTURE IF INDICATED RX'D. URINE SAMPLE OBTAINED, AWAITING RESULT.
[2023-02-11 22:44] LABS: Source, Urine Voided
[2023-02-11 22:47] LABS: Bilirubin, Urine Neg (Neg); Blood, Urine 1+ (Neg); Glucose Qualitative, Urine Neg (Neg); Ketones, Urine Neg (Neg); Leukocyte Esterase, Urine 3+ (Neg); Nitrite, Urine Neg (Neg); Protein, Urine Neg (Neg); Specific Gravity, Urine 1.005 (1.003-1.022); Urobilinogen, Urine NORM (Normal)
[2023-02-11 22:54] LABS: Appearance, Urine Hazy (Clear); Color, Urine Yellow (P-Yellow)
[2023-02-11 23:00] LABS: White Blood Cells, Urine 50-100 /hpf (0-5)
[2023-02-11 23:01] LABS: Bacteria Mod /hpf; Squamous Epithelial Cells Rare /hpf (Few)
[2023-02-12 01:59] VITALS: BP 107/74
[2023-02-12 05:16] LABS: Albumin, Blood 3.1 g/dL (3.4-5.0); Anion Gap 3 mmol/L (6-16); Blood Urea Nitrogen 35 mg/dL (8-24); Bun/Creatinine Ratio 39.7 (12.0-20.0); CO2, Blood 36 mmol/L (21-32); Calcium, Blood 9.4 mg/dL (8.5-10.1); Chloride, Blood 93 mmol/L (98-108); Creatinine, Blood 0.88 mg/dL (0.60-1.20); Glomerular Filtration Rate 93 (60-); Glucose, Blood 96 mg/dL (70-99); Phosphorus, Blood 3.4 mg/dL (2.5-4.9); Potassium, Blood 3.3 mmol/L (3.5-5.5); Sodium, Blood 132 mmol/L (136-145)
--- NOTE | 2023-02-12 06:43 | NUR ---
SUMMARY: A/OX4, CALLS APPROPRIATELY TO SPECIFY NEEDS AND IS PLEASANT AND COOPERATIVE W/CARE. HE'S CONT'S TO HAVE AN UNSTEADY GAIT W/WEAKNESS AND REQUIRED 2PA W/FWW TO PIVOT T/F TO CHAIR THIS SHIFT. HE'S MOSTLY CONTINENT VIA URINAL AD KHOA BUT IS OCC INCONTINENT D/T URINARY FREQUENCY W/URGENCY R/T DIURESIS. URINE APPEARED VERY CLOUDY AND HAZY W/SEDIMENT OBSERVED TONIGHT. UA WAS OBTAINED W/CX NOW PENDING BUT POSSIBLE UTI IS OBSERVED SO COMMENCED PT ON ROCEPHIN. EDEMA PERSISTS TO BLE'S AND ACCURATE WT WAS OBTAINED THIS SHIFT, WT GAIN NOTED IN COMPARISON TO PT'S STATED ER ADMIT WT BUT STAFF QUESTION ACCURACY. HE CONT'S TO REQUIRE 6-7L O2 VIA NC AND CPAP BLEED-IN W/INABILITY TO TITRATE, 4L IS BASELINE. PT DOESN'T APPEAR PARTICULARLY SOB BUT STILL DESATS W/MOST ACTIVITY AND EXERTION. NO ACUTE CHANGES. HE INTITIALLY WAS HYPOTENSIVE W/SBP 89 AT HS BUT MAP WAS >65 AND SBP HAS IMPROVED TO 100'S-120'S SINCE. ALL OTHER VSS. WCTM AND REPORT TO DAY RN.
[2023-02-12 08:09] VITALS: BP 99/72
[2023-02-12 15:29] VITALS: BP 101/66
--- NOTE | 2023-02-12 18:42 | NUR ---
SHIFT SUMMARY PATIENT UP OOB MULTIPLE TIMES TODAY. PATIENT WORKING WITH PT AND OT. AMBULATION IMPROVED. PATIENT CONTINUES TO BE CONFUSED AT TIMES BUT EASILY REORIENTED. PATIENT COOPERATIVE WITH CARE. PATIENT INCONTINENT MULTIPLE TIMES THROUGHOUT THE DAY AND HAVING ISSUES SPILLING URINAL. PATIENT CONTINUES TO BE GETTING DIURETICS. VERBALIZING FRUSTRATION RELATED TO THE EVENING TIME DIURETICS ARE GIVEN AND STATES THAT PATIENT DOES NOT GET MUCH REST.
[2023-02-12 19:19] VITALS: BP 94/66
[2023-02-13 02:09] VITALS: BP 101/78
--- NOTE | 2023-02-13 05:04 | NUR ---
SHIFT SUMMARY PT IS A&O2, CONFUSION OVERNIGHT, 1 ASSIST TO BSC, PT HAD BM OVERNIGHT, 6L NC SATS LOW 90S', NO COMPLAINTS OF PAIN OR ACUTE OVERNIGHT EVENTS, CONTINUE POC
[2023-02-13 06:06] LABS: Bun/Creatinine Ratio 40.1 (12.0-20.0); Calcium, Blood 9.4 mg/dL (8.5-10.1); Creatinine, Blood 0.92 mg/dL (0.60-1.20); Potassium, Blood 3.7 mmol/L (3.5-5.5)
[2023-02-13 09:53] VITALS: BP 100/66
[2023-02-13 15:59] VITALS: BP 95/69
--- NOTE | 2023-02-13 18:40 | NUR ---
PT IN [facility] TODAY. HOPING TO GET OUT OF HOSPITAL TOMORROW. HE EXPECTING TO GO TO REHAB TO GET STRONGER. KRYSTAL IN TO SEE TODAY, WAS BROTHER. NO NEW CONCERN NOTED. BED IN [facility], CALL PARVEEN IN [facility], CALLS APPROP
[2023-02-14 03:29] VITALS: BP 113/74
[2023-02-14 06:23] LABS: Bun/Creatinine Ratio 35.4 (12.0-20.0); Calcium, Blood 9.3 mg/dL (8.5-10.1); Creatinine, Blood 0.99 mg/dL (0.60-1.20)
[2023-02-14 08:09] VITALS: BP 107/77
[2023-02-14 11:46] LABS: SARS-Cov-2 (COVID-19) PCR, MMC NEGATIVE (NEGATIVE)
[2023-02-14] MEDS ORDERED: METO5 PO (12:39)
--- NOTE | 2023-02-14 14:42 | NUR ---
REPORT CALLED TO SERGEY AT [facility]. PT DRESSED AND READY TO GO AT THIS TIME.
--- NOTE | 2023-02-14 15:41 | NUR ---
transport here for pt. iv [id number] by aide. no tele. tralsport wheeled to door at 1530
== END 2023-02-14 15:31 | DRG 291 ==
LOC: ER 10:56 → MEDS 13:32
PROVIDERS: Emergency Medicine; Family Medicine; Internal Medicine; Nurse Practitioner Acute Care; ADMIT Internal Medicine
PROC: 5A09357 Assistance with Respiratory Ventilation, Less than 24 Consecutive Hours, Continuous Positive Airway Pressure (ICD-10-PCS; principal; 2023-01-31)
DX: I11.0 Hypertensive heart disease with heart failure (principal); J96.21 Acute and chronic respiratory failure with hypoxia; E87.1 Hypo-osmolality and hyponatremia; I27.20 Pulmonary hypertension, unspecified; I50.813 Acute on chronic right heart failure; G47.33 Obstructive sleep apnea (adult) (pediatric); Z66 Do not resuscitate; Z51.5 Encounter for palliative care; R54 Age-related physical debility; Z20.822 Contact with and (suspected) exposure to COVID-19; E55.9 Vitamin D deficiency, unspecified; G40.909 Epilepsy, unspecified, not intractable, without status epilepticus; E87.6 Hypokalemia; Z86.711 Personal history of pulmonary embolism; Z86.718 Personal history of other venous thrombosis and embolism; Z79.01 Long term (current) use of anticoagulants; Z79.899 Other long term (current) drug therapy; Z98.890 Other specified postprocedural states
CPT/HCPCS: 36415; 36600; 71045; 80048; 80053; 80069; 80164; 80185; 81001; 82803; 83735; 83880; 85025; 87086; 93005; 93010; 93306; 94660; 94762; 96374; 97110; 97110-CQ; 97112; 97116; 97162; 97166; 97530; 97535; 99285-25; A9270; J0696; J1940; U0002

== ENCOUNTER 2023-03-09 06:09 | Emergency (ER) | payer OTHER ==
[~2023-03-09] VITALS: Ht 182.9 cm; Wt 91.6 kg
[~2023-03-09 06:09] MED LIST changes: +METO5 PO; +OMEP20ER PO; +TORSE20 PO
[2023-03-09 09:50] VITALS: BP 117/81
== END 2023-03-09 09:50 | disposition home or self-care (01) ==
LOC: ER 06:09
DX: S01.01XA Laceration without foreign body of scalp, initial encounter (principal); W18.30XA Fall on same level, unspecified, initial encounter; Z79.899 Other long term (current) drug therapy; Z79.01 Long term (current) use of anticoagulants
CPT/HCPCS: 12002; 70450; 99283-25

== ENCOUNTER → 2024-02-05 | Outpatient (CLI) | payer OTHER ==
[2024-02-05 17:00] LABS: BASOPHILS ABSOLUTE AUTO 0.03 K/mm3 (0.00-0.23); BASOPHILS PERCENT AUTO 1 % (0-2); EOSINOPHILS ABSOLUTE AUTO 0.08 K/mm3 (0.00-0.68); EOSINOPHILS PERCENT AUTO 1 % (0-6); Hematocrit 39.5 % (37.0-53.0); Hemoglobin 13.3 g/dL (13.5-17.5); IMMATURE GRAN ABSOLUTE AUTO 0.04 K/mm3 (0.00-0.10); IMMATURE GRAN PERCENT AUTO 1 % (0-1); LYMPHOCYTES ABSOLUTE AUTO 1.51 K/mm3 (0.84-5.20); LYMPHOCYTES PERCENT AUTO 26 % (21-46); MONOCYTES ABSOLUTE AUTO 0.51 K/mm3 (0.16-1.47); MONOCYTES PERCENT AUTO 9 % (4-13); Mean Corpuscular HGB 32.7 pg (26.0-34.0); Mean Corpuscular HGB Conc 33.7 g/dL (31.5-36.5); Mean Corpuscular Volume 97 fL (80-100); Mean Platelet Volume 8.9 fL (9.1-12.4); NEUTROPHILS PERCENT AUTO 62 % (41-73); Platelet Count 248 K/mm3 (150-400); RDW Coefficient Variation 14.5 % (11.7-14.2); RDW Standard Deviation 50.6 fL (35.1-46.3); Red Blood Cell Count 4.07 M/mm3 (4.30-5.90); White Blood Cell Count 5.77 K/mm3 (4.00-11.30)
== END | disposition home or self-care (01) ==
LOC: LAB 16:55 → LAB SHORT 16:55
PROVIDERS: Physician Assistant Surgical
DX: M79.89 Other specified soft tissue disorders (principal)
CPT/HCPCS: 84550; 85025

== ENCOUNTER 2024-04-08 14:35 | Observation (INO) | payer OTHER ==
[~2024-04-08] VITALS: Ht 185.4 cm; Wt 95.0 kg
[~2024-04-08 14:35] MED LIST changes: +AMBRISENTAN10 MG PO; +COLCHICINE0.6 MG PO; +COQ-10100 MG PO; +DOCUZEN 8.6-501 EACH PO; +FEBUXOSTAT40 MG PO; +Iron Chews15 MG PO; +PROBIOTIC1 EA14 PO; +TERB250 PO; +VITAMIN D31250 MC2 PO
[2024-04-08 15:09] LABS: BASOPHILS ABSOLUTE AUTO 0.02 K/mm3 (0.00-0.23); BASOPHILS PERCENT AUTO 0 % (0-2); EOSINOPHILS ABSOLUTE AUTO 0.01 K/mm3 (0.00-0.68); EOSINOPHILS PERCENT AUTO 0 % (0-6); Hemoglobin 13.5 g/dL (13.5-17.5); IMMATURE GRAN ABSOLUTE AUTO 0.03 K/mm3 (0.00-0.10); IMMATURE GRAN PERCENT AUTO 0 % (0-1); LYMPHOCYTES ABSOLUTE AUTO 0.94 K/mm3 (0.84-5.20); LYMPHOCYTES PERCENT AUTO 14 % (21-46); MONOCYTES ABSOLUTE AUTO 0.85 K/mm3 (0.16-1.47); MONOCYTES PERCENT AUTO 13 % (4-13); Mean Corpuscular HGB 32.7 pg (26.0-34.0); Mean Corpuscular HGB Conc 32.9 g/dL (31.5-36.5); Mean Corpuscular Volume 99 fL (80-100); Mean Platelet Volume 9.9 fL (9.1-12.4); NEUTROPHILS ABSOLUTE AUTO 4.88 K/mm3 (1.96-9.15); NEUTROPHILS PERCENT AUTO 73 % (41-73); Platelet Count 266 K/mm3 (150-400); RDW Coefficient Variation 15.5 % (11.7-14.2); RDW Standard Deviation 56.7 fL (35.1-46.3); Red Blood Cell Count 4.13 M/mm3 (4.30-5.90); White Blood Cell Count 6.73 K/mm3 (4.00-11.30)
[2024-04-08 15:31] LABS: Albumin, Blood 3.3 g/dL (3.4-5.0); Albumin/Globulin Ratio 0.9 (0.8-1.8); Bilirubin, Total 0.5 mg/dL (0.1-1.0); Bun/Creatinine Ratio 23.9 (12.0-20.0); Calcium, Blood 9.3 mg/dL (8.5-10.1); Creatinine, Blood 1.17 mg/dL (0.60-1.20); Free Thyroxine 0.69 ng/dL (0.70-1.60); Globulin, Blood 3.6 g/dL (2.2-4.0); Magnesium, Blood 2.3 mg/dL (1.6-2.4); Potassium, Blood 4.5 mmol/L (3.5-5.5); Thyroid Stimulating Hormone 3.4 uIU/mL (0.360-4.800); Total Protein, Blood 6.9 g/dL (6.4-8.2)
[2024-04-08 15:40] LABS: Base Excess Venous 2.8 mmol/L; Bicarbonate Venous 26.4 mmol/L (24.0-30.0); PCO2 Venous 41.9 mmHg (38-42); pH Blood Venous 7.42 (7.34-7.37)
[2024-04-08 16:00] LABS: Source, Urine Clean Catch
[2024-04-08 16:05] LABS: Appearance, Urine Hazy (Clear); Bilirubin, Urine Neg (Neg); Blood, Urine Neg (Neg); Color, Urine Yellow (P-Yellow); Glucose Qualitative, Urine Neg (Neg); Ketones, Urine Neg (Neg); Leukocyte Esterase, Urine Neg (Neg); Nitrite, Urine Neg (Neg); Protein, Urine Neg (Neg); Specific Gravity, Urine 1.015 (1.003-1.022); Urobilinogen, Urine NORM (Normal); pH, Urine 6.5 (5.0-8.0)
[2024-04-08 16:31] LABS: International Normalized Ratio 1.11; Prothrombin Time Results 11.8 Sec (9.7-11.5)
[2024-04-08 16:39] LABS: Bacteria Few /hpf; Hyaline Casts 0-2 /lpf (0-2); Red Blood Cells, Urine 0-2 /hpf (0-2); Squamous Epithelial Cells Rare /hpf (Few); White Blood Cells, Urine 0-2 /hpf (0-5)
[2024-04-08] MEDS ORDERED: Furosemide 10 MG/ML 4ML Vial IV ONE (16:55)
[2024-04-08] MEDS ORDERED: CefTRIAXone Sodium 1,000 MG in NS 100 ML IV ONE (18:10)
[2024-04-08] MEDS ORDERED: Azithromycin 500 MG in NS 250 ML IV ONE (18:10)
[2024-04-08] MEDS ORDERED: FLU VACC TS2024-25(6MOS UP)/PF 45 MCG/0.5 ML SYRINGE IM SCH (21:30)
[2024-04-08] MEDS ORDERED: Ondansetron HCl 2 MG / ML 2ML Vial IV PRN (21:30)
[2024-04-08] MEDS ORDERED: Acetaminophen 325 MG TABLET PO PRN (21:30)
[2024-04-08 22:10] LABS: Dilantin (Phenytoin), Total 16.2 ug/mL (10.0-20.0); Valproic Acid 42.6 ug/mL (50.0-100.0)
[2024-04-08] MEDS ORDERED: Misc. Tablet PO ONE (22:15)
[2024-04-08 23:08] LABS: Adenovirus Not Detected (NOT DETECT); Bordetella pertussis Not Detected (NOT DETECT); Chlamydophila pneumoniae Not Detected (NOT DETECT); Coronavirus 229E Not Detected (NOT DETECT); Coronavirus HKU1 Not Detected (NOT DETECT); Coronavirus NL63 Not Detected (NOT DETECT); Coronavirus OC43 Not Detected (NOT DETECT); Human Metapneumovirus Not Detected (NOT DETECT); Human Rhinovirus/Enterovirus Not Detected (NOT DETECT); Influenza A/2009-H1 Not Detected (NOT DETECT); Influenza A/H1 Not Detected (NOT DETECT); Influenza A/H3 Not Detected (NOT DETECT); Influenza B Not Detected (NOT DETECT); Mycoplasma pneumoniae Not Detected (NOT DETECT); Parainfluenza Virus 1 Not Detected (NOT DETECT); Parainfluenza Virus 2 Not Detected (NOT DETECT); Parainfluenza Virus 3 Not Detected (NOT DETECT); Parainfluenza Virus 4 Not Detected (NOT DETECT); Respiratory Syncytial Virus Not Detected (NOT DETECT); SARS-Cov-2 (COVID-19), BioFire Not Detected (NOT DETECT)
[2024-04-08 23:27] VITALS: BP 99/61
[2024-04-09] MEDS ORDERED: Misc. Tablet PO ONE (01:50)
[2024-04-09 03:11] VITALS: BP 99/68
[2024-04-09 03:36] LABS: BASOPHILS ABSOLUTE AUTO 0.02 K/mm3 (0.00-0.23); BASOPHILS PERCENT AUTO 0 % (0-2); EOSINOPHILS ABSOLUTE AUTO 0.03 K/mm3 (0.00-0.68); EOSINOPHILS PERCENT AUTO 1 % (0-6); Hematocrit 40.4 % (37.0-53.0); Hemoglobin 13.5 g/dL (13.5-17.5); IMMATURE GRAN ABSOLUTE AUTO 0.01 K/mm3 (0.00-0.10); IMMATURE GRAN PERCENT AUTO 0 % (0-1); LYMPHOCYTES ABSOLUTE AUTO 1.43 K/mm3 (0.84-5.20); LYMPHOCYTES PERCENT AUTO 26 % (21-46); MONOCYTES ABSOLUTE AUTO 0.77 K/mm3 (0.16-1.47); MONOCYTES PERCENT AUTO 14 % (4-13); Mean Corpuscular HGB 33.1 pg (26.0-34.0); Mean Corpuscular HGB Conc 33.4 g/dL (31.5-36.5); Mean Corpuscular Volume 99 fL (80-100); Mean Platelet Volume 9.6 fL (9.1-12.4); NEUTROPHILS ABSOLUTE AUTO 3.35 K/mm3 (1.96-9.15); NEUTROPHILS PERCENT AUTO 60 % (41-73); Platelet Count 231 K/mm3 (150-400); RDW Coefficient Variation 15.2 % (11.7-14.2); RDW Standard Deviation 55.1 fL (35.1-46.3); Red Blood Cell Count 4.08 M/mm3 (4.30-5.90); White Blood Cell Count 5.61 K/mm3 (4.00-11.30)
[2024-04-09 03:51] LABS: International Normalized Ratio 1.08; Prothrombin Time Results 11.5 Sec (9.7-11.5)
[2024-04-09 03:58] LABS: Bun/Creatinine Ratio 26.6 (12.0-20.0); Calcium, Blood 9.1 mg/dL (8.5-10.1); Creatinine, Blood 0.98 mg/dL (0.60-1.20); Magnesium, Blood 2.2 mg/dL (1.6-2.4); Potassium, Blood 3.7 mmol/L (3.5-5.5)
--- NOTE | 2024-04-09 05:55 | NUR ---
Shift Summary- Received patient shortly after midnight from ED. Patient arrived alert and oriented x4, able to perform med-rec with me and complete all parts of his assessment with him. Skin assessment performed, noted to have small abraisions, scraped on bilateral knees (pictures taken and documented in soft chart), also a small scratch/abrasion on his left hip, all from a fall at home. Typically he walks with a FWW at home, where he lives with his . Normally wears 8-9L of oxygen at baseline on the nasal cannula and uses his bipap at night with oxygen bled into it as well. States he has lost 30lbs in 10months without trying. Purwick applied, lasix given and patient resting comfortably. Patient currently on 9L of oxygen, spo2 above 92%, in sinus rythym. VSS throughout, though BP on the 'softer' side. Patient is not symptomatic of this. No other needs throughout the night.
[2024-04-09] MEDS ORDERED: Docusate Sodium/Senna 1 Tab PO PRN (06:40)
[2024-04-09 08:33] VITALS: BP 99/71
[2024-04-09] MEDS ORDERED: Apixaban 5 MG Tab PO SCH (09:00)
[2024-04-09] MEDS ORDERED: Tamsulosin HCl 0.4 MG Cap PO SCH (09:00)
[2024-04-09] MEDS ORDERED: Primidone 250 MG Tab PO SCH (09:00)
[2024-04-09] MEDS ORDERED: Divalproex Sodium 500 MG TABLET.DR PO SCH (09:00)
[2024-04-09] MEDS ORDERED: Misc. Tablet PO SCH (09:00)
[2024-04-09] MEDS ORDERED: Omeprazole 20 MG CapCR PO SCH (09:00)
[2024-04-09] MEDS ORDERED: Potassium Chloride 10 Meq Tablet SA PO SCH (09:00)
[2024-04-09] MEDS ORDERED: Furosemide 10 MG/ML 4ML Vial IV SCH ×2 (09:00)
[2024-04-09] MEDS ORDERED: tadalafiL 5 MG Tab PO SCH (09:00)
--- NOTE | 2024-04-09 09:49 | NUR ---
REPORT GIVEN TO MED FLOOR RN AT 934. CONTACTED AT 903 AND UPDATED THAT PT IS BEING TRANSFERED TO ROOM 336 ON MEDICAL FLOOR.
--- NOTE | 2024-04-09 10:17 | NUR ---
"Spiritual Care Viisit | Pt. Request Pt. is awake in bed when he welcmoes my visit. Pt. is pleasant. facilitated a life review. Pt. displayed evidence of increased trust as rapport is established. Prayed for Pt. pt. verbalized gratitude for the spiritual care visit."
--- NOTE | 2024-04-09 11:25 | NUR ---
PT STATES TAKES 10 MG LETAIRIS, ORDER SHOWS ONLY GIVE [address] JACOB. OKAYED GIVE 10 MG PER BOTTLE INSTRUCTIONS. DISC USSED WITH PHA. WILL CHANGE.
[2024-04-09 15:32] VITALS: BP 109/59
[2024-04-09] MEDS ORDERED: UPTRAVI 1000 MCG PO SCH (17:00)
--- NOTE | 2024-04-09 18:40 | NUR ---
SHIFT SUMMARY PT COOPERATIVE WITH PROCEDURES, FAMILY REPORTS PT HAS A DIFFICULT TIME LETTING STAFF KNOW WHEN HE NEEDS SOMETHING. THIS RN WENT INTO ROOM MULTIPLE TIMES ASKING IF PT WAS IN PAIN OR HE WAS COLD. PT SUSTAINING APPROX 90% O2 SAT WHILE ON 8/9 L O2 VIA HIGH FLOW NASAL CANNULA. PURE WICK DID NOT HOLD DUE TO PATIENT NOT BEING CLEAN SHAVEN IN DILIP AREA. BED IN LOWEST POSITION, CALL LIGHT WITHIN REACH.
[2024-04-09 19:30] VITALS: BP 101/58
[2024-04-10 03:46] VITALS: BP 115/74
--- NOTE | 2024-04-10 05:22 | NUR ---
SHIFT SUMMARY PATIENT IS ALERT AND ORIENTED TO ALL BUT CAN BE FORGETFUL. DNR STATUS. PATIENT IS ABLE TO MAKE NEEDS KNOWN. PLEASANT AND COOPERATIVE WITH CARE. PATIENT IS VERY HARD OF HEARING, BUT DOES HAVE HEARING AIDS ON THE BEDSIDE TABLE. PATIENT USES 9L OF CONTINUOUS O2 AT HOME, WELL A BIPAP. PATIENT WILL REMOVE BIPAP TO TAKE A DRINK AND THEN WILL FORGET THAT HE NEEDS TO PUT IT BACK ON. PATIENT IS ABLE TO USE THE URINAL WHILE REMAINING IN BED. PATIENT'S OXYGEN SATURATION HAS MAINTAINED IN THE 90S ALL NIGHT. THIS RN WILL RELAY ALL INFORMATION TO ONCOMING NURSE. NO ACUTE CHANGES THIS SHIFT.
[2024-04-10 05:56] LABS: Hematocrit 40.1 % (37.0-53.0); Hemoglobin 13.5 g/dL (13.5-17.5); Mean Corpuscular HGB 33.3 pg (26.0-34.0); Mean Corpuscular HGB Conc 33.7 g/dL (31.5-36.5); Mean Corpuscular Volume 99 fL (80-100); Mean Platelet Volume 9.7 fL (9.1-12.4); Platelet Count 223 K/mm3 (150-400); RDW Coefficient Variation 14.9 % (11.7-14.2); RDW Standard Deviation 54.4 fL (35.1-46.3); Red Blood Cell Count 4.06 M/mm3 (4.30-5.90); White Blood Cell Count 7.38 K/mm3 (4.00-11.30)
[2024-04-10 06:19] LABS: Anion Gap 9 mmol/L (3-11); Blood Urea Nitrogen 23 mg/dL (8-24); Bun/Creatinine Ratio 23.8 (12.0-20.0); CO2, Blood 25 mmol/L (21-32); Chloride, Blood 108 mmol/L (98-108); Creatinine, Blood 0.97 mg/dL (0.60-1.20); Glomerular Filtration Rate 83 (60-); Glucose, Blood 130 mg/dL (70-99); Magnesium, Blood 2.1 mg/dL (1.6-2.4); Phosphorus, Blood 3.4 mg/dL (2.5-4.9); Potassium, Blood 3.8 mmol/L (3.5-5.5); Sodium, Blood 138 mmol/L (136-145)
[2024-04-10 07:27] VITALS: BP 117/73
[2024-04-10] MEDS ORDERED: Torsemide 20 MG TAB PO SCH (09:00)
[2024-04-10] MEDS ORDERED: CO Q10100 MG PO (11:55)
--- NOTE | 2024-04-10 14:29 | NUR ---
1232 DISCHARGE PT A&OX4, COOPERATIVE WITH PROCEDURES. PT DC'D HOME WITH HOME HEALTH. TRANSPORTED IN WHEELCHAIR BY THIS RN DOWN TO PATIENT ENTRANCE TO MEET WITH CAR. PT WAS ON 9L O2 PRIOR TO DC, BUT ONLY HAD ACCESS TO 6L ON TRANSPORT HOME. WHEN TRANSFERRING INTO CAR, THIS RN HAD A DIFFICULT TIME TRANSFERRING PATIENT INTO CAR. PATIENT WAS UNSTEADY ON FEET AND WEAK. PT REPORTS DAUGHTER, WHO IS A NURSE, WILL BE HELPING AT HOME. BELONGINGS WENT WITH PT ALONG WITH DISCHARGE PAPERWORK.
== END 2024-04-10 13:00 | disposition home health service (06) ==
LOC: ER 14:35 → PCU 14:36 → MEDS 04-09 09:55 → ENPENDDIS 04-10 11:15 → MEDS 04-10 13:00
PROVIDERS: Emergency Medicine; Internal Medicine; Nurse Practitioner Acute Care; ADMIT Internal Medicine
DX: J96.21 Acute and chronic respiratory failure with hypoxia (principal); G47.33 Obstructive sleep apnea (adult) (pediatric); I27.21 Secondary pulmonary arterial hypertension; G40.909 Epilepsy, unspecified, not intractable, without status epilepticus; R47.81 Slurred speech; J81.1 Chronic pulmonary edema; Z99.89 Dependence on other enabling machines and devices; Z79.899 Other long term (current) drug therapy; Z79.01 Long term (current) use of anticoagulants; Z66 Do not resuscitate
CPT/HCPCS: 0202U; 36415; 70450; 70551; 71045; 80048; 80053; 80069; 80164; 80185; 81001; 82803; 83690; 83735; 83880; 84145; 84439; 84443; 84484; 85025; 85027; 85379; 85610; 85730; 93005; 93010; 94762; 96365; 96367; 97110; 97116; 97162; 99285-25; A9270; G0378; J0456; J0696; J1940; J7050

== ENCOUNTER 2024-06-14 01:33 | Inpatient (IN) | payer OTHER ==
[~2024-06-14] VITALS: Ht 188 cm; Wt 98.2 kg
[~2024-06-14 01:33] MED LIST changes: +CO Q10100 MG PO
[2024-06-14 01:53] LABS: Base Excess Venous 2.4 mmol/L; Bicarbonate Venous 25.7 mmol/L (24.0-30.0); PCO2 Venous 40.4 mmHg (38-42); pH Blood Venous 7.43 (7.34-7.37)
[2024-06-14 02:04] LABS: BASOPHILS ABSOLUTE AUTO 0.04 K/mm3 (0.00-0.23); BASOPHILS PERCENT AUTO 1 % (0-2); EOSINOPHILS ABSOLUTE AUTO 0.04 K/mm3 (0.00-0.68); EOSINOPHILS PERCENT AUTO 1 % (0-6); Hematocrit 45.6 % (37.0-53.0); Hemoglobin 15.3 g/dL (13.5-17.5); IMMATURE GRAN ABSOLUTE AUTO 0.21 K/mm3 (0.00-0.10); IMMATURE GRAN PERCENT AUTO 3 % (0-1); LYMPHOCYTES PERCENT AUTO 15 % (21-46); MONOCYTES ABSOLUTE AUTO 1.04 K/mm3 (0.16-1.47); MONOCYTES PERCENT AUTO 14 % (4-13); Mean Corpuscular HGB 32.6 pg (26.0-34.0); Mean Corpuscular HGB Conc 33.6 g/dL (31.5-36.5); Mean Corpuscular Volume 97 fL (80-100); Mean Platelet Volume 9.4 fL (9.1-12.4); NEUTROPHILS ABSOLUTE AUTO 5.02 K/mm3 (1.96-9.15); NEUTROPHILS PERCENT AUTO 67 % (41-73); Platelet Count 331 K/mm3 (150-400); RDW Coefficient Variation 15.4 % (11.7-14.2); RDW Standard Deviation 54.9 fL (35.1-46.3); Red Blood Cell Count 4.69 M/mm3 (4.30-5.90); White Blood Cell Count 7.45 K/mm3 (4.00-11.30)
[2024-06-14 02:16] LABS: Albumin, Blood 3.1 g/dL (3.4-5.0); Albumin/Globulin Ratio 0.7 (0.8-1.8); Bilirubin, Total 0.6 mg/dL (0.1-1.0); Bun/Creatinine Ratio 20.5 (12.0-20.0); Calcium, Blood 9.8 mg/dL (8.5-10.1); Creatinine, Blood 1.51 mg/dL (0.60-1.20); Globulin, Blood 4.7 g/dL (2.2-4.0); Potassium, Blood 4.5 mmol/L (3.5-5.5); Total Protein, Blood 7.8 g/dL (6.4-8.2)
[2024-06-14] MEDS ORDERED: FLU VACC TS2024-25(6MOS UP)/PF 45 MCG/0.5 ML SYRINGE IM ONE (04:45)
[2024-06-14 05:22] LABS: Influenza A, PCR NEGATIVE (NEGATIVE); Influenza B, PCR NEGATIVE (NEGATIVE); Resp Syncytial Virus, PCR NEGATIVE (NEGATIVE)
[2024-06-14 06:10] LABS: SARS-Cov-2 (COVID-19) PCR, MMC POSITIVE (NEGATIVE)
[2024-06-14] MEDS ORDERED: Remdesivir (EUA) 200 MG in NS 250 ML IV ONE (06:40)
[2024-06-14] MEDS ORDERED: Dexamethasone Sodium Phosphate 4 MG/ML 1ML Vial IV SCH (07:00)
[2024-06-14] MEDS ORDERED: Lidocaine 2% Jelly Uro-Jet UR ONE (08:15)
[2024-06-14] MEDS ORDERED: Lactated Ringer's 500 ML IV SCH (09:00)
[2024-06-14] MEDS ORDERED: Enoxaparin 40 MG/0.4 ML SYR SC SCH (09:00)
[2024-06-14 09:11] LABS: Source, Urine Clean Catch
[2024-06-14 09:14] LABS: Bilirubin, Urine Neg (Neg); Blood, Urine 3+ (Neg); Glucose Qualitative, Urine Neg (Neg); Ketones, Urine Neg (Neg); Leukocyte Esterase, Urine 3+ (Neg); Nitrite, Urine Neg (Neg); Protein, Urine 2+ (Neg); Specific Gravity, Urine 1.005 (1.003-1.022); Urobilinogen, Urine NORM (Normal)
[2024-06-14 10:28] LABS: Appearance, Urine Hazy (Clear); Color, Urine Yellow (P-Yellow)
[2024-06-14 10:29] LABS: Bacteria Many /hpf; Squamous Epithelial Cells Rare /hpf (Few); White Blood Cells, Urine 25-50 /hpf (0-5)
[2024-06-14 10:30] LABS: Hyaline Casts 0-2 /lpf (0-2)
[2024-06-14 10:59] VITALS: BP 114/74
[2024-06-14] MEDS ORDERED: Apixaban 5 MG Tab PO SCH (13:00)
[2024-06-14] MEDS ORDERED: tadalafiL 5 MG Tab PO SCH (13:00)
[2024-06-14] MEDS ORDERED: Primidone 250 MG Tab PO SCH (13:00)
[2024-06-14] MEDS ORDERED: Divalproex Sodium 500 MG TABLET.DR PO SCH (13:00)
[2024-06-14] MEDS ORDERED: Tamsulosin HCl 0.4 MG Cap PO SCH (13:00)
[2024-06-14] MEDS ORDERED: Docusate Sodium/Senna 1 Tab PO PRN (13:05)
[2024-06-14] MEDS ORDERED: Cholecalciferol 1000 Unit Tablet (=25MCG) PO SCH (13:30)
[2024-06-14] MEDS ORDERED: AMBRISENTAN 10MG TABLET PO SCH (13:30)
[2024-06-14] MEDS ORDERED: SELEXIPAG PO SCH (13:30)
[2024-06-14 15:28] VITALS: BP 97/65
[2024-06-14] MEDS ORDERED: CefTRIAXone Sodium 1,000 MG in NS 100 ML IV SCH (16:11)
[2024-06-14] MEDS ORDERED: Azithromycin 500 MG in NS 250 ML IV SCH (16:30)
[2024-06-14] MEDS ORDERED: Torsemide 20 MG TAB PO SCH (18:00)
[2024-06-14 20:10] VITALS: BP 92/64
[2024-06-14] MEDS ORDERED: Acetaminophen 325 MG TABLET PO PRN (21:05)
[2024-06-14 23:46] VITALS: BP 100/67
[2024-06-15] VITALS (7 sets, daily range): BP systolic 104–119; BP diastolic 64–75
[2024-06-15 04:19] LABS: BASOPHILS ABSOLUTE AUTO 0.03 K/mm3 (0.00-0.23); BASOPHILS PERCENT AUTO 0 % (0-2); EOSINOPHILS ABSOLUTE AUTO 0.01 K/mm3 (0.00-0.68); EOSINOPHILS PERCENT AUTO 0 % (0-6); Hemoglobin 16.1 g/dL (13.5-17.5); IMMATURE GRAN ABSOLUTE AUTO 0.23 K/mm3 (0.00-0.10); IMMATURE GRAN PERCENT AUTO 2 % (0-1); LYMPHOCYTES ABSOLUTE AUTO 1.06 K/mm3 (0.84-5.20); LYMPHOCYTES PERCENT AUTO 9 % (21-46); MONOCYTES PERCENT AUTO 15 % (4-13); Mean Corpuscular HGB 32.5 pg (26.0-34.0); Mean Corpuscular HGB Conc 33.5 g/dL (31.5-36.5); Mean Corpuscular Volume 97 fL (80-100); Mean Platelet Volume 9.2 fL (9.1-12.4); NEUTROPHILS ABSOLUTE AUTO 9.01 K/mm3 (1.96-9.15); NEUTROPHILS PERCENT AUTO 74 % (41-73); Platelet Count 342 K/mm3 (150-400); RDW Coefficient Variation 15.4 % (11.7-14.2); RDW Standard Deviation 54.3 fL (35.1-46.3); Red Blood Cell Count 4.96 M/mm3 (4.30-5.90); White Blood Cell Count 12.14 K/mm3 (4.00-11.30)
[2024-06-15 04:46] LABS: Albumin, Blood 2.8 g/dL (3.4-5.0); Albumin/Globulin Ratio 0.6 (0.8-1.8); Bilirubin, Total 0.5 mg/dL (0.1-1.0); Bun/Creatinine Ratio 23.2 (12.0-20.0); Calcium, Blood 9.2 mg/dL (8.5-10.1); Creatinine, Blood 1.51 mg/dL (0.60-1.20); Globulin, Blood 4.8 g/dL (2.2-4.0); Potassium, Blood 4.9 mmol/L (3.5-5.5); Total Protein, Blood 7.6 g/dL (6.4-8.2)
[2024-06-15] MEDS ORDERED: Omeprazole 20 MG CapCR PO SCH (06:00)
[2024-06-15] MEDS ORDERED: NS 250 ML IV ONE (08:00)
[2024-06-15 08:41] LABS: Base Excess Venous -0.7 mmol/L; Bicarbonate Venous 23.8 mmol/L (24.0-30.0); PCO2 Venous 38.2 mmHg (38-42); pH Blood Venous 7.41 (7.34-7.37)
[2024-06-15] MEDS ORDERED: Cholecalciferol 1000 Unit Tablet (=25MCG) PO SCH (09:00)
[2024-06-15] MEDS ORDERED: Ferrous Gluconate 325 MG Tablet PO SCH (09:00)
[2024-06-15] MEDS ORDERED: Remdesivir (EUA) 100 MG in NS 250 ML IV SCH (12:00)
[2024-06-16] VITALS: BP 108/63
[2024-06-16 03:53] VITALS: BP 118/67
[2024-06-16 04:19] LABS: BASOPHILS ABSOLUTE AUTO 0.05 K/mm3 (0.00-0.23); BASOPHILS PERCENT AUTO 0 % (0-2); EOSINOPHILS ABSOLUTE AUTO 0.01 K/mm3 (0.00-0.68); EOSINOPHILS PERCENT AUTO 0 % (0-6); Hematocrit 43.8 % (37.0-53.0); Hemoglobin 14.6 g/dL (13.5-17.5); IMMATURE GRAN ABSOLUTE AUTO 0.23 K/mm3 (0.00-0.10); IMMATURE GRAN PERCENT AUTO 2 % (0-1); LYMPHOCYTES ABSOLUTE AUTO 1.11 K/mm3 (0.84-5.20); LYMPHOCYTES PERCENT AUTO 10 % (21-46); MONOCYTES ABSOLUTE AUTO 1.59 K/mm3 (0.16-1.47); MONOCYTES PERCENT AUTO 14 % (4-13); Mean Corpuscular HGB 32.1 pg (26.0-34.0); Mean Corpuscular HGB Conc 33.3 g/dL (31.5-36.5); Mean Corpuscular Volume 96 fL (80-100); Mean Platelet Volume 8.9 fL (9.1-12.4); NEUTROPHILS ABSOLUTE AUTO 8.21 K/mm3 (1.96-9.15); NEUTROPHILS PERCENT AUTO 73 % (41-73); Platelet Count 327 K/mm3 (150-400); RDW Coefficient Variation 15.3 % (11.7-14.2); RDW Standard Deviation 54.4 fL (35.1-46.3); Red Blood Cell Count 4.55 M/mm3 (4.30-5.90)
[2024-06-16 04:33] LABS: Bun/Creatinine Ratio 27.9 (12.0-20.0); Calcium, Blood 9.5 mg/dL (8.5-10.1); Creatinine, Blood 1.22 mg/dL (0.60-1.20); Potassium, Blood 4.4 mmol/L (3.5-5.5)
[2024-06-16 07:25] VITALS: BP 113/80
[2024-06-16] MEDS ORDERED: Torsemide 20 MG TAB PO SCH (12:00)
[2024-06-16 12:19] VITALS: BP 103/57
[2024-06-16 15:03] VITALS: BP 102/61
[2024-06-16] MEDS ORDERED: PANT20 PO (18:31)
[2024-06-16] MEDS ORDERED: METO25ER PO (18:32)
[2024-06-16] MEDS ORDERED: CLOP75 PO (18:32)
[2024-06-16] MEDS ORDERED: OMEGA Q PO (18:36)
[2024-06-16] MEDS ORDERED: [UNRECOGNIZED DRUG - OTHER] PO (18:36)
[2024-06-16] MEDS ORDERED: OSTEO BI FLEX PO (18:37)
[2024-06-16 21:42] VITALS: BP 127/85
[2024-06-17] VITALS (7 sets, daily range): BP systolic 110–126; BP diastolic 64–88
[2024-06-17 04:25] LABS: BASOPHILS ABSOLUTE AUTO 0.03 K/mm3 (0.00-0.23); BASOPHILS PERCENT AUTO 0 % (0-2); EOSINOPHILS ABSOLUTE AUTO 0.01 K/mm3 (0.00-0.68); EOSINOPHILS PERCENT AUTO 0 % (0-6); Hematocrit 39.4 % (37.0-53.0); Hemoglobin 13.3 g/dL (13.5-17.5); IMMATURE GRAN ABSOLUTE AUTO 0.18 K/mm3 (0.00-0.10); IMMATURE GRAN PERCENT AUTO 2 % (0-1); LYMPHOCYTES ABSOLUTE AUTO 1.13 K/mm3 (0.84-5.20); LYMPHOCYTES PERCENT AUTO 12 % (21-46); MONOCYTES ABSOLUTE AUTO 1.48 K/mm3 (0.16-1.47); MONOCYTES PERCENT AUTO 16 % (4-13); Mean Corpuscular HGB 32.3 pg (26.0-34.0); Mean Corpuscular HGB Conc 33.8 g/dL (31.5-36.5); Mean Corpuscular Volume 96 fL (80-100); Mean Platelet Volume 9.1 fL (9.1-12.4); NEUTROPHILS ABSOLUTE AUTO 6.56 K/mm3 (1.96-9.15); NEUTROPHILS PERCENT AUTO 70 % (41-73); Platelet Count 296 K/mm3 (150-400); RDW Coefficient Variation 15.1 % (11.7-14.2); RDW Standard Deviation 52.6 fL (35.1-46.3); Red Blood Cell Count 4.12 M/mm3 (4.30-5.90); White Blood Cell Count 9.39 K/mm3 (4.00-11.30)
[2024-06-17 05:21] LABS: Bun/Creatinine Ratio 35.6 (12.0-20.0); Calcium, Blood 9.2 mg/dL (8.5-10.1); Creatinine, Blood 0.93 mg/dL (0.60-1.20); Potassium, Blood 4.4 mmol/L (3.5-5.5)
[2024-06-17] MEDS ORDERED: Torsemide 20 MG TAB PO SCH (09:00)
[2024-06-17] MEDS ORDERED: Polyethylene Glycol 3350 17 gm PO PRN (10:05)
[2024-06-17 10:58] LABS: CORONAVIRUS COVID-19 AG Negative (NEGATIVE)
[2024-06-17] MEDS ORDERED: Protein Supplement 30 ML UD PO SCH (21:00)
[2024-06-18] VITALS (7 sets, daily range): BP systolic 109–147; BP diastolic 66–81
[2024-06-18 04:28] LABS: BASOPHILS ABSOLUTE AUTO 0.02 K/mm3 (0.00-0.23); BASOPHILS PERCENT AUTO 0 % (0-2); EOSINOPHILS ABSOLUTE AUTO 0.01 K/mm3 (0.00-0.68); EOSINOPHILS PERCENT AUTO 0 % (0-6); Hemoglobin 14.2 g/dL (13.5-17.5); IMMATURE GRAN ABSOLUTE AUTO 0.18 K/mm3 (0.00-0.10); IMMATURE GRAN PERCENT AUTO 2 % (0-1); LYMPHOCYTES ABSOLUTE AUTO 1.07 K/mm3 (0.84-5.20); LYMPHOCYTES PERCENT AUTO 15 % (21-46); MONOCYTES ABSOLUTE AUTO 0.94 K/mm3 (0.16-1.47); MONOCYTES PERCENT AUTO 13 % (4-13); Mean Corpuscular HGB 32.9 pg (26.0-34.0); Mean Corpuscular HGB Conc 34.6 g/dL (31.5-36.5); Mean Corpuscular Volume 95 fL (80-100); Mean Platelet Volume 9.4 fL (9.1-12.4); NEUTROPHILS ABSOLUTE AUTO 5.14 K/mm3 (1.96-9.15); NEUTROPHILS PERCENT AUTO 70 % (41-73); Platelet Count 341 K/mm3 (150-400); RDW Coefficient Variation 14.7 % (11.7-14.2); RDW Standard Deviation 51.4 fL (35.1-46.3); Red Blood Cell Count 4.32 M/mm3 (4.30-5.90); White Blood Cell Count 7.36 K/mm3 (4.00-11.30)
[2024-06-18 05:01] LABS: Bun/Creatinine Ratio 40.6 (12.0-20.0); Calcium, Blood 9.4 mg/dL (8.5-10.1); Creatinine, Blood 0.84 mg/dL (0.60-1.20); Potassium, Blood 3.9 mmol/L (3.5-5.5)
[2024-06-18] MEDS ORDERED: NS 250 ML IV PRN (11:25)
[2024-06-18 15:54] LABS: Bicarbonate Venous 30.8 mmol/L (24.0-30.0); PCO2 Venous 33.8 mmHg (38-42)
[2024-06-18 15:56] LABS: pH Blood Venous 7.55 (7.34-7.37)
[2024-06-18] MEDS ORDERED: Phenol/Sodium Phenolate Oral Spray 180 ML MM PRN (23:35)
[2024-06-19 03:52] VITALS: BP 141/84
[2024-06-19 04:50] LABS: BASOPHILS ABSOLUTE AUTO 0.02 K/mm3 (0.00-0.23); BASOPHILS PERCENT AUTO 0 % (0-2); EOSINOPHILS PERCENT AUTO 0 % (0-6); Hematocrit 40.2 % (37.0-53.0); Hemoglobin 13.7 g/dL (13.5-17.5); IMMATURE GRAN ABSOLUTE AUTO 0.13 K/mm3 (0.00-0.10); IMMATURE GRAN PERCENT AUTO 2 % (0-1); LYMPHOCYTES ABSOLUTE AUTO 1.12 K/mm3 (0.84-5.20); LYMPHOCYTES PERCENT AUTO 14 % (21-46); MONOCYTES ABSOLUTE AUTO 1.09 K/mm3 (0.16-1.47); MONOCYTES PERCENT AUTO 14 % (4-13); Mean Corpuscular HGB 32.4 pg (26.0-34.0); Mean Corpuscular HGB Conc 34.1 g/dL (31.5-36.5); Mean Corpuscular Volume 95 fL (80-100); Mean Platelet Volume 9.3 fL (9.1-12.4); NEUTROPHILS PERCENT AUTO 70 % (41-73); Platelet Count 336 K/mm3 (150-400); RDW Coefficient Variation 14.6 % (11.7-14.2); RDW Standard Deviation 50.4 fL (35.1-46.3); Red Blood Cell Count 4.23 M/mm3 (4.30-5.90); White Blood Cell Count 7.76 K/mm3 (4.00-11.30)
[2024-06-19 05:42] LABS: Albumin, Blood 2.4 g/dL (3.4-5.0); Albumin/Globulin Ratio 0.5 (0.8-1.8); Bilirubin, Total 0.4 mg/dL (0.1-1.0); Bun/Creatinine Ratio 41.8 (12.0-20.0); Calcium, Blood 9.3 mg/dL (8.5-10.1); Creatinine, Blood 0.81 mg/dL (0.60-1.20); Globulin, Blood 4.6 g/dL (2.2-4.0); Potassium, Blood 3.7 mmol/L (3.5-5.5)
[2024-06-19 07:49] VITALS: BP 131/76
[2024-06-19 10:36] LABS: Bicarbonate Venous 31.1 mmol/L (24.0-30.0); PCO2 Venous 40.6 mmHg (38-42)
[2024-06-19 11:03] VITALS: BP 115/68
[2024-06-19 14:50] LABS: Base Excess Venous 9.4 mmol/L; Bicarbonate Venous 32.3 mmol/L (24.0-30.0); pH Blood Venous 7.51 (7.34-7.37)
[2024-06-19 15:28] VITALS: BP 115/71
[2024-06-19] MEDS ORDERED: FIBER500 MG PO (16:11)
[2024-06-19] MEDS ORDERED: Potassium Chl 20MEQ/Water100ML 100 ML IV SCH (16:35)
[2024-06-19] MEDS ORDERED: AcetaZOLAMIDE Sodium 500 MG Vial IV ONE (17:00)
[2024-06-19 19:37] VITALS: BP 106/66
[2024-06-19] MEDS ORDERED: METHYLCELLULOSE PO SCH (21:00)
[2024-06-19] MEDS ORDERED: Methylcellulose 19 GM PKT PO SCH (21:00)
[2024-06-19 21:02] LABS: Base Excess Venous 8.3 mmol/L; Bicarbonate Venous 31.1 mmol/L (24.0-30.0); PCO2 Venous 41.3 mmHg (38-42); pH Blood Venous 7.49 (7.34-7.37)
[2024-06-20] VITALS (8 sets, daily range): BP systolic 103–120; BP diastolic 58–70
[2024-06-20 04:05] LABS: Bun/Creatinine Ratio 55.9 (12.0-20.0); Creatinine, Blood 0.75 mg/dL (0.60-1.20); Potassium, Blood 3.8 mmol/L (3.5-5.5)
[2024-06-20 05:20] LABS: BASOPHILS ABSOLUTE AUTO 0.03 K/mm3 (0.00-0.23); BASOPHILS PERCENT AUTO 0 % (0-2); EOSINOPHILS ABSOLUTE AUTO 0.03 K/mm3 (0.00-0.68); EOSINOPHILS PERCENT AUTO 0 % (0-6); Hematocrit 39.9 % (37.0-53.0); Hemoglobin 13.5 g/dL (13.5-17.5); IMMATURE GRAN ABSOLUTE AUTO 0.13 K/mm3 (0.00-0.10); IMMATURE GRAN PERCENT AUTO 2 % (0-1); LYMPHOCYTES ABSOLUTE AUTO 1.34 K/mm3 (0.84-5.20); LYMPHOCYTES PERCENT AUTO 20 % (21-46); MONOCYTES ABSOLUTE AUTO 1.02 K/mm3 (0.16-1.47); MONOCYTES PERCENT AUTO 15 % (4-13); Mean Corpuscular HGB 32.4 pg (26.0-34.0); Mean Corpuscular HGB Conc 33.8 g/dL (31.5-36.5); Mean Corpuscular Volume 96 fL (80-100); Mean Platelet Volume 9.3 fL (9.1-12.4); NEUTROPHILS ABSOLUTE AUTO 4.23 K/mm3 (1.96-9.15); NEUTROPHILS PERCENT AUTO 63 % (41-73); Platelet Count 320 K/mm3 (150-400); RDW Coefficient Variation 14.5 % (11.7-14.2); RDW Standard Deviation 50.9 fL (35.1-46.3); Red Blood Cell Count 4.17 M/mm3 (4.30-5.90); White Blood Cell Count 6.78 K/mm3 (4.00-11.30)
[2024-06-20 07:30] LABS: Bicarbonate Venous 28.8 mmol/L (24.0-30.0); PCO2 Venous 40.7 mmHg (38-42); pH Blood Venous 7.47 (7.34-7.37)
[2024-06-20] MEDS ORDERED: Potassium Chl 20MEQ/Water100ML 100 ML IV SCH (09:45)
[2024-06-20] MEDS ORDERED: AcetaZOLAMIDE Sodium 500 MG Vial IV ONE (10:00)
[2024-06-21 03:57] VITALS: BP 116/71
[2024-06-21 04:34] LABS: BASOPHILS ABSOLUTE AUTO 0.02 K/mm3 (0.00-0.23); BASOPHILS PERCENT AUTO 0 % (0-2); EOSINOPHILS ABSOLUTE AUTO 0.02 K/mm3 (0.00-0.68); EOSINOPHILS PERCENT AUTO 0 % (0-6); Hematocrit 37.8 % (37.0-53.0); Hemoglobin 13.1 g/dL (13.5-17.5); IMMATURE GRAN ABSOLUTE AUTO 0.08 K/mm3 (0.00-0.10); IMMATURE GRAN PERCENT AUTO 1 % (0-1); LYMPHOCYTES PERCENT AUTO 15 % (21-46); MONOCYTES ABSOLUTE AUTO 0.82 K/mm3 (0.16-1.47); MONOCYTES PERCENT AUTO 11 % (4-13); Mean Corpuscular HGB 32.8 pg (26.0-34.0); Mean Corpuscular HGB Conc 34.7 g/dL (31.5-36.5); Mean Corpuscular Volume 95 fL (80-100); Mean Platelet Volume 9.5 fL (9.1-12.4); NEUTROPHILS ABSOLUTE AUTO 5.28 K/mm3 (1.96-9.15); NEUTROPHILS PERCENT AUTO 72 % (41-73); Platelet Count 393 K/mm3 (150-400); RDW Coefficient Variation 14.4 % (11.7-14.2); RDW Standard Deviation 49.5 fL (35.1-46.3); White Blood Cell Count 7.32 K/mm3 (4.00-11.30)
[2024-06-21 04:49] LABS: Bun/Creatinine Ratio 48.6 (12.0-20.0); Calcium, Blood 8.9 mg/dL (8.5-10.1); Creatinine, Blood 0.76 mg/dL (0.60-1.20); Potassium, Blood 3.4 mmol/L (3.5-5.5)
[2024-06-21] MEDS ORDERED: Potassium Chloride 20 MEQ TabCR PO ONE ×2 (07:00→09:20)
[2024-06-21 07:01] LABS: Base Excess Venous 3.9 mmol/L; Bicarbonate Venous 27.6 mmol/L (24.0-30.0); PCO2 Venous 38.6 mmHg (38-42); pH Blood Venous 7.46 (7.34-7.37)
[2024-06-21 07:47] VITALS: BP 113/70
[2024-06-21 12:02] VITALS: BP 110/69
[2024-06-21 20:07] VITALS: BP 103/58
[2024-06-22 04:15] VITALS: BP 102/65
[2024-06-22 07:07] LABS: Base Excess Venous 4.5 mmol/L; Bicarbonate Venous 28.9 mmol/L (24.0-30.0); PCO2 Venous 30.7 mmHg (38-42)
[2024-06-22 07:08] LABS: pH Blood Venous 7.55 (7.34-7.37)
[2024-06-22 07:19] LABS: BASOPHILS ABSOLUTE AUTO 0.02 K/mm3 (0.00-0.23); BASOPHILS PERCENT AUTO 0 % (0-2); EOSINOPHILS ABSOLUTE AUTO 0.02 K/mm3 (0.00-0.68); EOSINOPHILS PERCENT AUTO 0 % (0-6); Hematocrit 36.4 % (37.0-53.0); Hemoglobin 12.4 g/dL (13.5-17.5); IMMATURE GRAN PERCENT AUTO 1 % (0-1); LYMPHOCYTES ABSOLUTE AUTO 1.34 K/mm3 (0.84-5.20); LYMPHOCYTES PERCENT AUTO 17 % (21-46); MONOCYTES PERCENT AUTO 12 % (4-13); Mean Corpuscular HGB 32.4 pg (26.0-34.0); Mean Corpuscular HGB Conc 34.1 g/dL (31.5-36.5); Mean Corpuscular Volume 95 fL (80-100); Mean Platelet Volume 9.7 fL (9.1-12.4); NEUTROPHILS ABSOLUTE AUTO 5.38 K/mm3 (1.96-9.15); NEUTROPHILS PERCENT AUTO 69 % (41-73); Platelet Count 427 K/mm3 (150-400); RDW Coefficient Variation 14.4 % (11.7-14.2); RDW Standard Deviation 49.4 fL (35.1-46.3); Red Blood Cell Count 3.83 M/mm3 (4.30-5.90); White Blood Cell Count 7.76 K/mm3 (4.00-11.30)
[2024-06-22 07:22] VITALS: BP 98/55
[2024-06-22 07:43] LABS: Albumin, Blood 2.1 g/dL (3.4-5.0); Albumin/Globulin Ratio 0.5 (0.8-1.8); Bilirubin, Total 0.5 mg/dL (0.1-1.0); Bun/Creatinine Ratio 48.8 (12.0-20.0); Calcium, Blood 9.3 mg/dL (8.5-10.1); Creatinine, Blood 0.8 mg/dL (0.60-1.20); Globulin, Blood 4.3 g/dL (2.2-4.0); Potassium, Blood 3.5 mmol/L (3.5-5.5); Total Protein, Blood 6.4 g/dL (6.4-8.2)
[2024-06-22] MEDS ORDERED: Potassium Chloride 20 MEQ TabCR PO ONE (08:00)
[2024-06-22 12:05] VITALS: BP 103/65
[2024-06-22] MEDS ORDERED: NS IV SCH (18:00)
[2024-06-22] MEDS ORDERED: FOSPHENYTOIN PE IV SCH (18:00)
[2024-06-22] MEDS ORDERED: Furosemide 10 MG/ML 4ML Vial IV SCH (18:00)
[2024-06-22 20:37] VITALS: BP 125/75
[2024-06-22] MEDS ORDERED: Enoxaparin 100 MG/ML 1ML SYR SC SCH (21:00)
[2024-06-23] VITALS (8 sets, daily range): BP systolic 107–128; BP diastolic 67–88
[2024-06-23 04:02] LABS: Bicarbonate Venous 27.1 mmol/L (24.0-30.0); PCO2 Venous 27.9 mmHg (38-42); pH Blood Venous 7.55 (7.34-7.37)
[2024-06-23 05:21] LABS: BASOPHILS ABSOLUTE AUTO 0.04 K/mm3 (0.00-0.23); BASOPHILS PERCENT AUTO 1 % (0-2); EOSINOPHILS ABSOLUTE AUTO 0.01 K/mm3 (0.00-0.68); EOSINOPHILS PERCENT AUTO 0 % (0-6); Hematocrit 39.8 % (37.0-53.0); Hemoglobin 13.5 g/dL (13.5-17.5); IMMATURE GRAN ABSOLUTE AUTO 0.07 K/mm3 (0.00-0.10); IMMATURE GRAN PERCENT AUTO 1 % (0-1); LYMPHOCYTES ABSOLUTE AUTO 1.23 K/mm3 (0.84-5.20); LYMPHOCYTES PERCENT AUTO 19 % (21-46); MONOCYTES ABSOLUTE AUTO 0.82 K/mm3 (0.16-1.47); MONOCYTES PERCENT AUTO 13 % (4-13); Mean Corpuscular HGB Conc 33.9 g/dL (31.5-36.5); Mean Corpuscular Volume 97 fL (80-100); Mean Platelet Volume 9.9 fL (9.1-12.4); NEUTROPHILS ABSOLUTE AUTO 4.39 K/mm3 (1.96-9.15); NEUTROPHILS PERCENT AUTO 67 % (41-73); Platelet Count 495 K/mm3 (150-400); RDW Coefficient Variation 14.5 % (11.7-14.2); RDW Standard Deviation 51.3 fL (35.1-46.3); Red Blood Cell Count 4.09 M/mm3 (4.30-5.90); White Blood Cell Count 6.56 K/mm3 (4.00-11.30)
[2024-06-23 05:53] LABS: Bun/Creatinine Ratio 49.4 (12.0-20.0); Calcium, Blood 9.8 mg/dL (8.5-10.1); Creatinine, Blood 0.77 mg/dL (0.60-1.20); Potassium, Blood 3.9 mmol/L (3.5-5.5)
[2024-06-23] MEDS ORDERED: Pantoprazole Sodium 40 MG Injection IV SCH (06:00)
[2024-06-24 03:49] LABS: Base Excess Venous 1.9 mmol/L; Bicarbonate Venous 27.1 mmol/L (24.0-30.0); PCO2 Venous 26.2 mmHg (38-42); pH Blood Venous 7.57 (7.34-7.37)
[2024-06-24 03:50] VITALS: BP 109/76
[2024-06-24 04:35] LABS: Hematocrit 39.6 % (37.0-53.0); Hemoglobin 13.3 g/dL (13.5-17.5); Mean Corpuscular HGB 32.6 pg (26.0-34.0); Mean Corpuscular HGB Conc 33.6 g/dL (31.5-36.5); Mean Corpuscular Volume 97 fL (80-100); Mean Platelet Volume 9.6 fL (9.1-12.4); Platelet Count 535 K/mm3 (150-400); RDW Coefficient Variation 14.6 % (11.7-14.2); RDW Standard Deviation 51.8 fL (35.1-46.3); Red Blood Cell Count 4.08 M/mm3 (4.30-5.90); White Blood Cell Count 6.79 K/mm3 (4.00-11.30)
[2024-06-24 05:12] LABS: Bun/Creatinine Ratio 48.1 (12.0-20.0); Calcium, Blood 9.4 mg/dL (8.5-10.1); Creatinine, Blood 0.81 mg/dL (0.60-1.20); Potassium, Blood 3.8 mmol/L (3.5-5.5)
[2024-06-24 07:23] VITALS: BP 111/73
[2024-06-24] MEDS ORDERED: Torsemide 20 MG TAB PO SCH (10:00)
[2024-06-24] MEDS ORDERED: Apixaban 5 MG Tab PO SCH (10:00)
[2024-06-24] MEDS ORDERED: Valproic Acid 250 MG Cap PO SCH (10:00)
[2024-06-24 13:13] VITALS: BP 117/67
[2024-06-24 18:00] VITALS: BP 122/72
[2024-06-24 19:55] VITALS: BP 112/75
[2024-06-25] VITALS (8 sets, daily range): BP systolic 95–141; BP diastolic 59–86
[2024-06-25 07:36] LABS: BASOPHILS ABSOLUTE AUTO 0.02 K/mm3 (0.00-0.23); BASOPHILS PERCENT AUTO 0 % (0-2); EOSINOPHILS ABSOLUTE AUTO 0.04 K/mm3 (0.00-0.68); EOSINOPHILS PERCENT AUTO 1 % (0-6); Hematocrit 38.9 % (37.0-53.0); Hemoglobin 13.1 g/dL (13.5-17.5); IMMATURE GRAN ABSOLUTE AUTO 0.08 K/mm3 (0.00-0.10); IMMATURE GRAN PERCENT AUTO 1 % (0-1); LYMPHOCYTES ABSOLUTE AUTO 1.63 K/mm3 (0.84-5.20); LYMPHOCYTES PERCENT AUTO 23 % (21-46); MONOCYTES ABSOLUTE AUTO 0.75 K/mm3 (0.16-1.47); MONOCYTES PERCENT AUTO 11 % (4-13); Mean Corpuscular HGB 32.6 pg (26.0-34.0); Mean Corpuscular HGB Conc 33.7 g/dL (31.5-36.5); Mean Corpuscular Volume 97 fL (80-100); Mean Platelet Volume 9.8 fL (9.1-12.4); NEUTROPHILS ABSOLUTE AUTO 4.52 K/mm3 (1.96-9.15); NEUTROPHILS PERCENT AUTO 64 % (41-73); Platelet Count 539 K/mm3 (150-400); RDW Coefficient Variation 14.6 % (11.7-14.2); RDW Standard Deviation 50.3 fL (35.1-46.3); Red Blood Cell Count 4.02 M/mm3 (4.30-5.90); White Blood Cell Count 7.04 K/mm3 (4.00-11.30)
[2024-06-25 07:58] LABS: Albumin, Blood 2.5 g/dL (3.4-5.0); Albumin/Globulin Ratio 0.6 (0.8-1.8); Bilirubin, Total 0.4 mg/dL (0.1-1.0); Bun/Creatinine Ratio 47.8 (12.0-20.0); Creatinine, Blood 0.86 mg/dL (0.60-1.20); Globulin, Blood 4.4 g/dL (2.2-4.0); Potassium, Blood 3.8 mmol/L (3.5-5.5); Total Protein, Blood 6.9 g/dL (6.4-8.2)
[2024-06-25 08:00] LABS: Base Excess Venous 4.3 mmol/L; Bicarbonate Venous 27.9 mmol/L (24.0-30.0); PCO2 Venous 36.5 mmHg (38-42); pH Blood Venous 7.49 (7.34-7.37)
[2024-06-25] MEDS ORDERED: Azithromycin 500 MG in NS 250 ML IV SCH (12:00)
[2024-06-26 03:52] VITALS: BP 104/74
[2024-06-26 06:42] LABS: Base Excess Venous 7.5 mmol/L; Bicarbonate Venous 29.4 mmol/L (24.0-30.0); PCO2 Venous 41.1 mmHg (38-42); pH Blood Venous 7.48 (7.34-7.37)
[2024-06-26 06:49] LABS: Hematocrit 40.7 % (37.0-53.0); Hemoglobin 13.7 g/dL (13.5-17.5); Mean Corpuscular HGB 33.2 pg (26.0-34.0); Mean Corpuscular HGB Conc 33.7 g/dL (31.5-36.5); Mean Corpuscular Volume 99 fL (80-100); Mean Platelet Volume 9.5 fL (9.1-12.4); Platelet Count 538 K/mm3 (150-400); RDW Coefficient Variation 14.6 % (11.7-14.2); RDW Standard Deviation 52.1 fL (35.1-46.3); Red Blood Cell Count 4.13 M/mm3 (4.30-5.90); White Blood Cell Count 6.93 K/mm3 (4.00-11.30)
[2024-06-26 07:22] LABS: Albumin, Blood 2.4 g/dL (3.4-5.0); Albumin/Globulin Ratio 0.5 (0.8-1.8); Bilirubin, Total 0.4 mg/dL (0.1-1.0); Bun/Creatinine Ratio 48.7 (12.0-20.0); Calcium, Blood 9.2 mg/dL (8.5-10.1); Creatinine, Blood 0.72 mg/dL (0.60-1.20); Globulin, Blood 4.4 g/dL (2.2-4.0); Potassium, Blood 3.9 mmol/L (3.5-5.5); Total Protein, Blood 6.8 g/dL (6.4-8.2)
[2024-06-26 08:08] VITALS: BP 102/68
[2024-06-26 11:24] VITALS: BP 108/74
[2024-06-26 16:50] VITALS: BP 132/78
[2024-06-26 21:19] VITALS: BP 117/76
[2024-06-27] VITALS (7 sets, daily range): BP systolic 94–113; BP diastolic 62–82
[2024-06-27 03:39] LABS: Base Excess Venous 7.4 mmol/L; Bicarbonate Venous 30.8 mmol/L (24.0-30.0); PCO2 Venous 35.7 mmHg (38-42); pH Blood Venous 7.53 (7.34-7.37)
[2024-06-27 03:50] LABS: Hematocrit 36.6 % (37.0-53.0); Hemoglobin 12.4 g/dL (13.5-17.5); Mean Corpuscular HGB Conc 33.9 g/dL (31.5-36.5); Mean Corpuscular Volume 97 fL (80-100); Mean Platelet Volume 9.6 fL (9.1-12.4); Platelet Count 522 K/mm3 (150-400); RDW Coefficient Variation 14.7 % (11.7-14.2); RDW Standard Deviation 51.3 fL (35.1-46.3); Red Blood Cell Count 3.76 M/mm3 (4.30-5.90); White Blood Cell Count 6.29 K/mm3 (4.00-11.30)
[2024-06-27 04:11] LABS: Calcium, Blood 8.9 mg/dL (8.5-10.1); Creatinine, Blood 0.75 mg/dL (0.60-1.20)
[2024-06-28 03:26] VITALS: BP 107/65
[2024-06-28 03:32] LABS: Base Excess Venous 7.3 mmol/L; Bicarbonate Venous 30.6 mmol/L (24.0-30.0); PCO2 Venous 36.4 mmHg (38-42); pH Blood Venous 7.52 (7.34-7.37)
[2024-06-28 04:02] LABS: Hematocrit 35.8 % (37.0-53.0); Mean Corpuscular HGB 32.4 pg (26.0-34.0); Mean Corpuscular HGB Conc 33.5 g/dL (31.5-36.5); Mean Corpuscular Volume 97 fL (80-100); Mean Platelet Volume 9.7 fL (9.1-12.4); Platelet Count 504 K/mm3 (150-400); RDW Coefficient Variation 14.8 % (11.7-14.2); RDW Standard Deviation 51.7 fL (35.1-46.3); White Blood Cell Count 5.54 K/mm3 (4.00-11.30)
[2024-06-28 04:20] LABS: Bun/Creatinine Ratio 38.7 (12.0-20.0); Calcium, Blood 9.2 mg/dL (8.5-10.1); Creatinine, Blood 0.78 mg/dL (0.60-1.20)
[2024-06-28 07:17] VITALS: BP 115/63
[2024-06-28 12:30] VITALS: BP 99/63
[2024-06-28 15:19] VITALS: BP 98/66
[2024-06-28 20:08] VITALS: BP 107/73
[2024-06-29 00:06] VITALS: BP 106/71
[2024-06-29 03:57] VITALS: BP 102/69
[2024-06-29 04:34] LABS: BASOPHILS ABSOLUTE AUTO 0.03 K/mm3 (0.00-0.23); BASOPHILS PERCENT AUTO 1 % (0-2); EOSINOPHILS ABSOLUTE AUTO 0.06 K/mm3 (0.00-0.68); EOSINOPHILS PERCENT AUTO 1 % (0-6); Hematocrit 37.4 % (37.0-53.0); Hemoglobin 12.5 g/dL (13.5-17.5); IMMATURE GRAN ABSOLUTE AUTO 0.06 K/mm3 (0.00-0.10); IMMATURE GRAN PERCENT AUTO 1 % (0-1); LYMPHOCYTES ABSOLUTE AUTO 1.96 K/mm3 (0.84-5.20); LYMPHOCYTES PERCENT AUTO 34 % (21-46); MONOCYTES ABSOLUTE AUTO 0.47 K/mm3 (0.16-1.47); MONOCYTES PERCENT AUTO 8 % (4-13); Mean Corpuscular HGB 32.4 pg (26.0-34.0); Mean Corpuscular HGB Conc 33.4 g/dL (31.5-36.5); Mean Corpuscular Volume 97 fL (80-100); Mean Platelet Volume 9.3 fL (9.1-12.4); NEUTROPHILS ABSOLUTE AUTO 3.16 K/mm3 (1.96-9.15); NEUTROPHILS PERCENT AUTO 55 % (41-73); Platelet Count 482 K/mm3 (150-400); RDW Coefficient Variation 14.9 % (11.7-14.2); RDW Standard Deviation 52.3 fL (35.1-46.3); Red Blood Cell Count 3.86 M/mm3 (4.30-5.90); White Blood Cell Count 5.74 K/mm3 (4.00-11.30)
[2024-06-29 04:59] LABS: Bun/Creatinine Ratio 39.6 (12.0-20.0); Calcium, Blood 9.5 mg/dL (8.5-10.1); Creatinine, Blood 0.76 mg/dL (0.60-1.20); Potassium, Blood 4.4 mmol/L (3.5-5.5)
[2024-06-29 06:42] LABS: Base Excess Venous 8.6 mmol/L; Bicarbonate Venous 30.3 mmol/L (24.0-30.0); PCO2 Venous 44.5 mmHg (38-42); pH Blood Venous 7.47 (7.34-7.37)
[2024-06-29 07:37] VITALS: BP 105/59
[2024-06-29 15:29] VITALS: BP 106/75
[2024-06-29 19:54] VITALS: BP 103/75
[2024-06-29 23:34] VITALS: BP 123/69
[2024-06-30 03:46] VITALS: BP 111/70
[2024-06-30 04:07] LABS: BASOPHILS ABSOLUTE AUTO 0.02 K/mm3 (0.00-0.23); BASOPHILS PERCENT AUTO 0 % (0-2); EOSINOPHILS ABSOLUTE AUTO 0.08 K/mm3 (0.00-0.68); EOSINOPHILS PERCENT AUTO 2 % (0-6); Hematocrit 38.5 % (37.0-53.0); Hemoglobin 12.9 g/dL (13.5-17.5); IMMATURE GRAN ABSOLUTE AUTO 0.06 K/mm3 (0.00-0.10); IMMATURE GRAN PERCENT AUTO 1 % (0-1); LYMPHOCYTES ABSOLUTE AUTO 1.83 K/mm3 (0.84-5.20); LYMPHOCYTES PERCENT AUTO 36 % (21-46); MONOCYTES ABSOLUTE AUTO 0.49 K/mm3 (0.16-1.47); MONOCYTES PERCENT AUTO 10 % (4-13); Mean Corpuscular HGB 32.7 pg (26.0-34.0); Mean Corpuscular HGB Conc 33.5 g/dL (31.5-36.5); Mean Corpuscular Volume 98 fL (80-100); Mean Platelet Volume 9.3 fL (9.1-12.4); NEUTROPHILS ABSOLUTE AUTO 2.66 K/mm3 (1.96-9.15); NEUTROPHILS PERCENT AUTO 52 % (41-73); Platelet Count 445 K/mm3 (150-400); RDW Coefficient Variation 14.8 % (11.7-14.2); RDW Standard Deviation 52.9 fL (35.1-46.3); Red Blood Cell Count 3.95 M/mm3 (4.30-5.90); White Blood Cell Count 5.14 K/mm3 (4.00-11.30)
[2024-06-30 05:46] LABS: Bicarbonate Venous 29.3 mmol/L (24.0-30.0); PCO2 Venous 35.8 mmHg (38-42); pH Blood Venous 7.51 (7.34-7.37)
[2024-06-30 05:47] LABS: Base Excess Venous 5.7 mmol/L
[2024-06-30 06:59] LABS: Bun/Creatinine Ratio 33.2 (12.0-20.0); Calcium, Blood 9.1 mg/dL (8.5-10.1); Creatinine, Blood 0.96 mg/dL (0.60-1.20); Potassium, Blood 4.6 mmol/L (3.5-5.5)
[2024-06-30 07:47] VITALS: BP 118/86
[2024-06-30 11:58] VITALS: BP 121/71
[2024-06-30 15:58] VITALS: BP 105/67
[2024-06-30 20:44] VITALS: BP 100/70
[2024-06-30 23:35] VITALS: BP 111/68
[2024-07-01 03:00] VITALS: BP 123/76
[2024-07-01 03:55] LABS: Base Excess Venous 4.6 mmol/L; Bicarbonate Venous 28.6 mmol/L (24.0-30.0); PCO2 Venous 30.4 mmHg (38-42); pH Blood Venous 7.56 (7.34-7.37)
[2024-07-01 04:38] LABS: Hematocrit 37.6 % (37.0-53.0); Hemoglobin 12.6 g/dL (13.5-17.5); Mean Corpuscular HGB 32.6 pg (26.0-34.0); Mean Corpuscular HGB Conc 33.5 g/dL (31.5-36.5); Mean Corpuscular Volume 97 fL (80-100); Mean Platelet Volume 9.8 fL (9.1-12.4); Platelet Count 410 K/mm3 (150-400); RDW Coefficient Variation 14.9 % (11.7-14.2); Red Blood Cell Count 3.87 M/mm3 (4.30-5.90); White Blood Cell Count 4.76 K/mm3 (4.00-11.30)
[2024-07-01 05:01] LABS: Bun/Creatinine Ratio 38.5 (12.0-20.0); Calcium, Blood 9.2 mg/dL (8.5-10.1); Creatinine, Blood 0.94 mg/dL (0.60-1.20); Potassium, Blood 4.1 mmol/L (3.5-5.5)
[2024-07-01 09:24] VITALS: BP 93/62
[2024-07-01 11:35] VITALS: BP 109/74
[2024-07-01 15:55] VITALS: BP 97/51
[2024-07-01 19:30] VITALS: BP 108/62
[2024-07-02 04:35] VITALS: BP 120/78
[2024-07-02 07:49] VITALS: BP 107/71
[2024-07-02 11:30] VITALS: BP 112/56
[2024-07-02 18:09] VITALS: BP 110/69
[2024-07-02 20:24] VITALS: BP 120/79
[2024-07-02 22:43] VITALS: BP 116/77
[2024-07-03 03:39] VITALS: BP 96/71
[2024-07-03 07:32] VITALS: BP 117/74
[2024-07-03 12:26] VITALS: BP 101/58
[2024-07-03 17:56] VITALS: BP 96/61
[2024-07-03 20:03] VITALS: BP 101/62
[2024-07-03 23:01] VITALS: BP 107/68
[2024-07-04 03:43] LABS: Bicarbonate Venous 28.3 mmol/L (24.0-30.0); PCO2 Venous 29.1 mmHg (38-42); pH Blood Venous 7.56 (7.34-7.37)
[2024-07-04 04:43] VITALS: BP 103/67
[2024-07-04 07:14] VITALS: BP 101/63
[2024-07-04 13:00] VITALS: BP 96/57
[2024-07-04 15:54] VITALS: BP 95/64
[2024-07-04 19:50] VITALS: BP 103/65
[2024-07-05 00:28] VITALS: BP 95/65
[2024-07-05 03:55] LABS: BASOPHILS ABSOLUTE AUTO 0.05 K/mm3 (0.00-0.23); BASOPHILS PERCENT AUTO 1 % (0-2); EOSINOPHILS ABSOLUTE AUTO 0.08 K/mm3 (0.00-0.68); EOSINOPHILS PERCENT AUTO 2 % (0-6); Hematocrit 38.2 % (37.0-53.0); Hemoglobin 12.5 g/dL (13.5-17.5); IMMATURE GRAN ABSOLUTE AUTO 0.03 K/mm3 (0.00-0.10); IMMATURE GRAN PERCENT AUTO 1 % (0-1); LYMPHOCYTES PERCENT AUTO 49 % (21-46); MONOCYTES PERCENT AUTO 9 % (4-13); Mean Corpuscular HGB 32.4 pg (26.0-34.0); Mean Corpuscular HGB Conc 32.7 g/dL (31.5-36.5); Mean Corpuscular Volume 99 fL (80-100); Mean Platelet Volume 9.5 fL (9.1-12.4); NEUTROPHILS ABSOLUTE AUTO 1.77 K/mm3 (1.96-9.15); NEUTROPHILS PERCENT AUTO 39 % (41-73); Platelet Count 347 K/mm3 (150-400); RDW Coefficient Variation 15.2 % (11.7-14.2); RDW Standard Deviation 55.6 fL (35.1-46.3); Red Blood Cell Count 3.86 M/mm3 (4.30-5.90); White Blood Cell Count 4.53 K/mm3 (4.00-11.30)
[2024-07-05 04:00] VITALS: BP 102/65
[2024-07-05 04:15] LABS: Albumin, Blood 2.9 g/dL (3.4-5.0); Albumin/Globulin Ratio 0.8 (0.8-1.8); Bilirubin, Total 0.3 mg/dL (0.1-1.0); Bun/Creatinine Ratio 38.9 (12.0-20.0); Calcium, Blood 8.9 mg/dL (8.5-10.1); Creatinine, Blood 0.93 mg/dL (0.60-1.20); Globulin, Blood 3.6 g/dL (2.2-4.0); Potassium, Blood 4.6 mmol/L (3.5-5.5); Total Protein, Blood 6.5 g/dL (6.4-8.2)
[2024-07-05 07:51] VITALS: BP 95/63
[2024-07-05] MEDS ORDERED: ACET325 PO (10:46)
== END 2024-07-05 13:20 | DRG 177 ==
LOC: ER 01:33 → PCU 04:43 → ERHOLD 04:43 → PCU 04:43
PROVIDERS: Family Medicine; Internal Medicine Critical Care Medicine; Student in an Organized Health Care Education/Training Program; ADMIT Internal Medicine
PROC: 3E0333Z Introduction of Anti-inflammatory into Peripheral Vein, Percutaneous Approach (ICD-10-PCS; principal; 2024-06-14)
PROC: XW033E5 Introduction of Remdesivir Anti-infective into Peripheral Vein, Percutaneous Approach, New Technology Group 5 (ICD-10-PCS; 2024-06-14)
PROC: 5A09357 Assistance with Respiratory Ventilation, Less than 24 Consecutive Hours, Continuous Positive Airway Pressure (ICD-10-PCS; 2024-06-14)
PROC: 5A0935A Assistance with Respiratory Ventilation, Less than 24 Consecutive Hours, High Flow/Velocity Cannula (ICD-10-PCS; 2024-06-18)
PROC: 5A09457 Assistance with Respiratory Ventilation, 24-96 Consecutive Hours, Continuous Positive Airway Pressure (ICD-10-PCS; 2024-06-20)
DX: U07.1 COVID-19 (principal); J12.82 Pneumonia due to coronavirus disease 2019; J96.21 Acute and chronic respiratory failure with hypoxia; J15.9 Unspecified bacterial pneumonia; I27.0 Primary pulmonary hypertension; N17.9 Acute kidney failure, unspecified; E87.3 Alkalosis; Z66 Do not resuscitate; G47.33 Obstructive sleep apnea (adult) (pediatric); K21.9 Gastro-esophageal reflux disease without esophagitis; G40.909 Epilepsy, unspecified, not intractable, without status epilepticus; R33.9 Retention of urine, unspecified; L89.151 Pressure ulcer of sacral region, stage 1; R53.81 Other malaise; J44.9 Chronic obstructive pulmonary disease, unspecified; I49.3 Ventricular premature depolarization; E87.6 Hypokalemia; R82.71 Bacteriuria; I50.810 Right heart failure, unspecified; D64.9 Anemia, unspecified; B96.1 Klebsiella pneumoniae [K. pneumoniae] as the cause of diseases classified elsewhere; Z99.81 Dependence on supplemental oxygen; Z86.711 Personal history of pulmonary embolism; Z86.718 Personal history of other venous thrombosis and embolism; Z79.01 Long term (current) use of anticoagulants; Z79.899 Other long term (current) drug therapy
CPT/HCPCS: 0241U; 36415; 36416; 51701; 51702; 51798; 71045; 80048; 80053; 81001; 82803; 83880; 84145; 84484; 85025; 85027; 87077; 87086; 87186; 87426-QW; 92610; 93005; 93010; 93308; 93321; 94660; 94762; 97110; 97110-CQ; 97116; 97116-CQ; 97162; 97165; 97530; 97530-CQ; 97535; 99285-25; A9270; C9399; J0248; J0456; J0696; J1100; J1120; J1650; J1940; J2470; J3480; J7050; J7120; Q2009

== ENCOUNTER 2024-09-20 10:25 | Day surgery (SDC) | payer OTHER ==
[~2024-09-20] VITALS: Ht 185.4 cm; Wt 94.1 kg
[~2024-09-20 10:25] MED LIST changes: +ACET325 PO; +CLOP75 PO; +FIBER500 MG PO; +METO25ER PO; +NS 500 ML IV ONE; +OMEGA Q PO; +OSTEO BI FLEX PO; +PANT20 PO; +[UNRECOGNIZED DRUG - OTHER] PO
--- NOTE | 2024-09-20 10:58 | NUR ---
09/20/24 1057 Garima Duncan PATIENT IS ON OXYGEN BASELINE - ON DEMAND OXYGEN 6-7 LPM
[2024-09-20] MEDS ORDERED: TERB250 PO (11:10)
[2024-09-20] MEDS ORDERED: CENTRUM MULTIVITAMIN (11:10)
[2024-09-20] MEDS ORDERED: NS 500 ML IV ONE (11:10)
[2024-09-20] MEDS ORDERED: PROBIOTIC (11:11)
[2024-09-20] MEDS ORDERED: IRON (11:11)
[2024-09-20] MEDS ORDERED: CeFAZolin Sodium 2,000 MG VIAL ONE (11:15)
[2024-09-20] MEDS ORDERED: Lidocaine HCl 2% 10 ML SDA ONE (11:43)
--- NOTE | 2024-09-20 12:23 | NUR ---
09/20/24 1223 Renetta Triana PT TO STEP DOWN ON 8L BNC, O2 SATS FROM 85-91%. PT AWAKE, MDA AT BEDSIDE. CAP REFILL IN RIGHT HAND <3 SECONDS. RIGHT HAND WARM AND DRY. PT AAOX4.
[2024-09-20 12:31] VITALS: BP 97/64
== END 2024-09-20 13:21 | disposition home or self-care (01) ==
LOC: ORSCSDS 10:25
PROVIDERS: Orthopaedic Surgery
PROC: 0PBR0ZZ Excision of Right Thumb Phalanx, Open Approach (ICD-10-PCS; principal; 2024-09-20 12:30)
PROC: 0RGW04Z Fusion of Right Finger Phalangeal Joint with Internal Fixation Device, Open Approach (ICD-10-PCS; principal; 2024-09-20 12:30)
DX: M19.041 Primary osteoarthritis, right hand (principal); M10.9 Gout, unspecified; G47.33 Obstructive sleep apnea (adult) (pediatric); G40.909 Epilepsy, unspecified, not intractable, without status epilepticus; Z79.01 Long term (current) use of anticoagulants; K21.9 Gastro-esophageal reflux disease without esophagitis; Z79.899 Other long term (current) drug therapy; Z99.81 Dependence on supplemental oxygen
CPT/HCPCS: C1713; C1769; J0690; J2003; J7040